=== PATIENT | female | born 1940 | race Two or more races ===

== ENCOUNTER 2024-04-04 07:11 | Emergency (ER) | payer MEDICARE, SELFPAY ==
[2024-04-04 07:17] VITALS: BP 190/89; PULSE 67; TEMP 36.8; O2SAT 99; BMI 23.8
--- NOTE | 2024-04-04 07:24 | XR_ITS ---
The [address] [address] Patient Name: NANDO EPSTEIN MRN: [id number] date: 1940 Sex: F Assigned Patient Location: ER Current Patient Location: ED.MAIN Accession/Order Number: [id number] Exam Date: 04/04/2024 07:30 Report Date: 04/04/2024 08:05 At the request of: DEJON FLORES Procedure: XR ankle LT min 3V PROCEDURE: XR ankle LT min 3V HISTORY: Swelling ; medial left ankle pain for 2 days COMPARISON: None. FINDINGS: BONES:No fracture, dislocation, or articular surface irregularity. Prominent calcaneal plantar spur and adjacent soft tissue heterotopic bone formation. SOFT TISSUES:Mild soft tissue swelling, medial greater than lateral. Calcium deposition within the Achilles tendon suggesting remote injury. EFFUSION:Joint effusion. OTHER: Negative. XR/XR ankle LT min 3V IMPRESSION: 1. No acute bone abnormality. 2. Joint effusion and soft tissue swelling of uncertain etiology. Electronically authenticated by: ESTHER ANDREWS Date: 04/04/2024 08:05
[2024-04-04 07:56] LABS: Uric Acid 4.9 mg/dL (2.6-6.0)
--- NOTE | 2024-04-04 08:18 | ED.LOWEXI1 ---
HPI HPI - Extremity Injury (Lower) General Chief Complaint: Extremity Injury, Lower Stated Complaint: LOWER EXTREMITY PAIN, LEFT Time Seen by Provider: 04/04/24 08:18 Source: patient and family Mode of arrival: Wheelchair Limitations: no limitations History of Present Illness HPI Narrative: This patient's uterine complaining of pain in the medial aspect of her ankle. 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 She does not recall any specific incident or injury or event. She did not roll her ankle. None of her other joints are involved. She has history of ulcerative colitis and is on medications for that. She has no history of gout. She has not been running a fever. Does not have any other recent viral type infectious process. Does not have any pain on the heel of the foot it is only over the medial malleolus. She has noted swelling in this area as well. After being triaged by her nursing staff she was sent to the radiology department for imaging. Related Data Home Medications ?Medication ?Instructions ?Recorded ?Confirmed balsalazide 750 mg capsule 750 mg PO DAILY 04/04/24 04/04/24 bisoprolol 10 1 tab PO DAILY 04/04/24 04/04/24 mg-hydrochlorothiazide 6.25 mg tablet latanoprost 0.005 % eye drops 1 drp ophthalmic (eye) BEDTIME 04/04/24 04/04/24 timolol maleate 0.5 % eye drops 1 drp ophthalmic (eye) DAILY 04/04/24 04/04/24 Allergies Allergy/AdvReac Type Severity Reaction Status Date / Time No Known Drug Allergies Allergy Verified 04/04/24 07:17 Opioid HPI Opioid Management Most Recent Pain and Opioid Data: Last Pain Scale 8 04/04/24 07:23 Exam Narrative Exam Narrative: Well-hydrated well-nourished very pleasant 83-year-old appears younger than stated age. Examining there left lower leg shows her to be erythema and soft tissue swelling noted over the medial malleolus. There is actually very little discomfort with palpation of the area. The great toe is not involved. Metatarsals are asymptomatic. The lateral joint is none swollen and nontender. There is [place] no discomfort on the heel at the plantar surface of the foot. There is no open wounds or suggestion of cellulitis. There is no evidence of DVT or vascular ischemia. Constitutional Vital Signs, click to edit/add: Last Vital Signs Temp 98.2 F 04/04/24 07:17 Pulse 67 04/04/24 07:17 Resp 18 04/04/24 07:17 BP 190/89 H 04/04/24 07:17 Pulse Ox 99 04/04/24 07:17 O2 Del Method Room Air 04/04/24 07:17 Course Vital Signs Vital signs: Vital Signs Temperature 98.2 F 04/04/24 07:17 Pulse Rate 67 04/04/24 07:17 Respiratory Rate 18 04/04/24 07:17 Blood Pressure 190/89 H 04/04/24 07:17 Pulse Oximetry 99 04/04/24 07:17 Oxygen Delivery Method Room Air 04/04/24 07:17 Temperature 98.2 F 04/04/24 07:17 Pulse Rate 67 04/04/24 07:17 Respiratory Rate 18 04/04/24 07:17 Blood Pressure 190/89 H 04/04/24 07:17 Pulse Oximetry 99 04/04/24 07:17 Oxygen Delivery Method Room Air 04/04/24 07:17 MDM - Extremity Injury (Lower) MDM Narrative Medical decision making narrative: Patient is very very active and has mild degenerative changes at her joint. The area was really not tender. I do not suspect that this is gout at this time. Supportive care including rest elevation and ice air splint was advised. 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 Fabricio Navarrete or your primary care doctor. Medrol pack Referrals: LUCÍA TIJERINA [Primary Care Provider] - 1 week
[2024-04-04 08:42] VITALS: BP 189/87; PULSE 78; O2SAT 99
== END 2024-04-04 08:42 | disposition home or self-care (01) ==
PROVIDERS: Emergency Provider Emergency Medicine Emergency Medical Services; PCP Family Medicine
DX: M19.072 Primary osteoarthritis, left ankle and foot (principal); K51.90 Ulcerative colitis, unspecified, without complications
CPT/HCPCS: 36415; 73610; 84550; 99284

== ENCOUNTER 2024-10-08 12:42 | Emergency (ER) | payer MEDICARE, SELFPAY ==
[2024-10-08 12:47] VITALS: BP 142/80; PULSE 61; TEMP 36.8; O2SAT 98; BMI 25.5
--- NOTE | 2024-10-08 12:57 | CT_ITS ---
The [address] [address] Patient Name: NANDO EPSTEIN MRN: [id number] date: 1940 Sex: F Assigned Patient Location: ER Current Patient Location: ER Accession/Order Number: [id number] Exam Date: 10/08/2024 13:13 Report Date: 10/08/2024 13:44 At the request of: OSITO SETH Procedure: CT head/brain wo con EXAMINATION: CT head/brain wo con HISTORY: Fell and hit head, left side hematoma COMPARISON: No relevant comparison available. TECHNIQUE: Axial CT images were obtained without IV contrast. Dose reduction techniques were achieved by using automated exposure control and/or adjustment of mA and/or kV according to patient size and/or use of iterative reconstruction technique. FINDINGS: BRAIN: No edema, hemorrhage, mass, acute infarction, or inappropriate atrophy. Small calcification within left basal ganglia. CSF SPACES: No hydrocephalus, subarachnoid hemorrhage, or mass. Appropriate for age. SKULL: No fracture, mass, or other significant visible lesion. SINUSES: No significant mucosal thickening or fluid on the limited views. ORBITS: No appreciable abnormality on the limited views. OTHER: Mild subcutaneous bruising/edema overlying left parietal bone. CT/CT head/brain wo con IMPRESSION: 1. No intracranial hemorrhage or appreciable acute abnormality. 2. Age consistent chronic changes. 3. Mild subcutaneous bruising/edema over left temporal bone. No fracture. Electronically authenticated by: ESTHER ANDREWS Date: 10/08/2024 13:44
--- NOTE | 2024-10-08 12:57 | ED.HEATRA1 ---
HPI HPI - Head Injury General Chief complaint: Head Injury Stated complaint: fall Time Seen by Provider: 10/08/24 12:53 History of Present Illness HPI Narrative: 83-year-old female presents for an injury to her head. She was on a walking track about an hour ago and she fell and she hit the left posterior part of her head. This caused an area of swelling. No LOC or vomiting and she is not nauseous. No neck pain or other injury at all. She is not on any blood thinners. Related Data Home Medications ?Medication ?Instructions ?Recorded ?Confirmed balsalazide 750 mg capsule 750 mg PO DAILY 04/04/24 04/04/24 bisoprolol 10 1 tab PO DAILY 04/04/24 04/04/24 mg-hydrochlorothiazide 6.25 mg tablet latanoprost 0.005 % eye drops 1 drp ophthalmic (eye) BEDTIME 04/04/24 04/04/24 timolol maleate 0.5 % eye drops 1 drp ophthalmic (eye) DAILY 04/04/24 04/04/24 Allergies Allergy/AdvReac Type Severity Reaction Status Date / Time No Known Drug Allergies Allergy Verified 04/04/24 07:17 Opioid HPI Opioid Management Most Recent Pain and Opioid Data: Last Pain Scale 8 04/04/24 07:23 04/04/24 Review of Systems ROS Narrative A ten point review of systems is negative except as noted above. PFSH PFSH Social History Little interest or pleasure in doing things: not at all Feeling down, depressed, or hopeless: not at all Exam Narrative Exam Narrative: Nurses note and vital signs reviewed and patient is not hypoxic. General: The patient appears well and in no apparent distress. Patient is resting comfortably sitting in a chair. Skin: Warm, dry, no pallor noted. There is no rash noted. Head: Normocephalic, hematoma present on the left posterior lateral aspect of her scalp. No laceration or dried blood. Cervical spine nontender. Eye: Normal conjunctiva, no drainage Ears, Nose, Mouth, and Throat: oral mucosa is moist. Nares patent. Cardiovascular: Regular Rate and Rhythm Respiratory: Patient is in no distress, no accessory muscle use, lungs are clear to auscultation, no wheezing, rales or rhonchi Back: non-tender including C-spine GI: Soft and nontender Musculoskeletal: All joints have full range of motion Neurological: A&O, normal speech Psychiatric: Cooperative Constitutional Vital Signs, click to edit/add: Last Vital Signs Temp 98.2 F 10/08/24 12:47 Pulse 61 10/08/24 12:47 Resp 18 10/08/24 12:47 BP 142/80 H 10/08/24 12:47 Pulse Ox 98 10/08/24 12:47 O2 Del Method Room Air 10/08/24 12:47 Course Vital Signs Vital signs: Vital Signs Temperature 98.2 F 10/08/24 12:47 Pulse Rate 61 10/08/24 12:47 Respiratory Rate 18 10/08/24 12:47 Blood Pressure 142/80 H 10/08/24 12:47 Pulse Oximetry 98 10/08/24 12:47 Oxygen Delivery Method Room Air 10/08/24 12:47 Temperature 98.2 F 10/08/24 12:47 Pulse Rate 61 10/08/24 12:47 Respiratory Rate 18 10/08/24 12:47 Blood Pressure 142/80 H 10/08/24 12:47 Pulse Oximetry 98 10/08/24 12:47 Oxygen Delivery Method Room Air 10/08/24 12:47 MDM - Head Injury MDM Narrative Medical decision making narrative: CT is negative. Findings are discussed with the patient and she is discharged home. Treatment diagnosis and follow-up were discussed with patient. Differential Diagnosis Differential diagnosis: Likely epidural hematoma, closed head injury, subarachnoid hematoma and subdural hematoma Imaging Data CT scan - head: Radiologist's impression: ITS Impressions Head CT 10/08/24 12:57 IMPRESSION: 1. No intracranial hemorrhage or appreciable acute abnormality. 2. Age consistent chronic changes. 3. Mild subcutaneous bruising/edema over left temporal bone. No fracture. Electronically authenticated by: ESTHER ANDREWS Date: 10/08/2024 13:44 Discharge Plan Discharge Chief Complaint: Head Injury Clinical Impression: Scalp hematoma Patient Disposition: Home, Self-Care Time of Disposition Decision: 14:10 Condition: Good Mode of Transportation: Private Vehicle Prescriptions / Home Meds: No Action bisoprolol-hydrochlorothiazide 10-6.25 mg tablet 1 tab PO DAILY latanoprost 0.005 % drops 1 drp OPHTHALMIC (EYE) BEDTIME timolol maleate 0.5 % drops 1 drp OPHTHALMIC (EYE) DAILY balsalazide 750 mg capsule 750 mg PO DAILY Print Language: Lithuanian Instructions: Scalp Contusion in Adults (ED) Referrals: LUCÍA TIJERINA [Primary Care Provider] - 1 week
--- OUTSIDE RECORDS SUMMARY | 2024-10-08 13:10 | XMS_ITS | CCD ---
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 Name Role Phone Alexandria Fisher Unavailable Camron Davis Unavailable Jeanette Brandt Unavailable Frederick Joe Unavailable KRISTIAN PEREZ Admitting Unavailable KRISTIAN PEREZ Attending Unavailable LILLIANA, DR CASTREJON Primary Care Unavailable JULIANA, DR ESTHER Rogers Consulting Unavailable OSITO SETH Consulting Unavailable HUGO, DR ANA Rogers Admitting Unavailable HUGO, DR ANA Rogers Attending Unavailable [facility], DR LOMBARDO Primary Care Unavailable HUGO, DR ANA Rogers Consulting Unavailable CHUYITA MARR Consulting Unavailable WANDA CASTILLO Admitting Unavailable WANDA CASTILLO Attending Unavailable SHAKIRA, DR LOMBARDO Primary Care Unavailable Jeanette Tijerina MD Unavailable [phone] Jeanette Tijerina MD Primary Care Provider JEANETTE TIJERINA Attending Unavailable JEANETTE TIJERINA Attending Unavailable Medications Current Medications Medication Drug Class(es) Dates Sig (Normalized) Sig (Original) acetaminophen 500 mg oral tablet (11 sources) Start: 05-26-2022 take 500 mg by mouth every six hours Acetaminophen Active 500 MG PO Q6H May 25, 2022 11:00pm Acetaminophen TN N Active Acetaminophen Ac tive balsalazide disodium 750 mg oral capsule (11 sources) Aminosalicylate Start: 05-26-2022 take 750 mg by mouth twice daily Balsalazide Active 750 MG PO Twice daily May 25, 2022 11:00pm Start: 04-28-2022 take 3 capsules by m outh every twenty-four hours Balsalazide Disodium 750 MG 3 capsules Orally ONCE A DAY for 90 days Apr, Active Start: 04-28-2022 take 3 capsules by m outh every twelve hours Balsalazide Disodium 750 MG 3 capsules Orally Twice a day for 30 days Apr, Active take 2 capsules by m outh every twelve hours balsalazide (Colazal) 750 MG capsule Take 2 capsules by mouth every 12 (twelve) hours. Active bisoprolol fumarate 10 mg / hydroCHLOROthiazide 6.25 mg oral tablet (14 sources) Thiazide Diuretic, beta-Adrenergic Fidencio Start: 07-07-2021 End: 09-23-2024 take 1 tablet by mouth once daily bisoprolol-hydroCHLOROthiazide (Ziac) 10-6.25 MG tablet Indications: Essential (primary) hypertension (CMS/HCC) TAKE 1 TABLET BY MOUTH EVERY DAY AT THE SAME TIME 90 tablet 1 09/23/2024 Active cyclobenzaprine hydrochloride 5 mg oral tablet (2 sources) Muscle Relaxant Start: 05-11-2022 take 1 tablet by mouth three times daily as needed Cyclobenzaprine HCl 5 MG 1 tab(s) Orally 3 times a day prn muscle spasms Take 1 tablet by mouth 3 times a day as needed for neck stiffness. Be aware this will make you very tired Apr, Active latanoprost 0.05 mg/ml ophthalmic solution (13 sources) Prostaglandin Analog Start: 07-07-2021 take 1 drop(s) into the eye(s) once daily at bedtime Latanoprost Active 0.005 DROPS EYE-BOTH Daily at bedtime July 06, 2021 11:00pm take 1 drop(s) into the eye(s) once daily latanoprost (Xalatan) 0.005 % ophthalmic solution Administer 1 drop into affected eye(s) 1 (one) time each day at the same time. Active take 1 drop(s) into the eye(s) once daily in the evening Latanoprost 0.005 % 1 drop into affected eye in the evening Ophthalmic Once a day Active mesalamine 800 mg delayed release oral tablet (1 source) Aminosalicylate Start: 09-24-2024 take 1 dose by mouth three times daily Mesalamine Active 1600 MG PO Three times daily 180 September 24, 2024 12:00am must be taken on empty stomach; no food 1 hr after or 2-3 hrs before dose Multiple Vitamins-Minerals (Multivitamin Adult, Minerals,) tablet (4 sources) take 1 tablet by mouth once daily Multiple Vitamins-Minerals (Multivitamin Adult, Minerals,) tablet Take 1 tablet by mouth 1 (one) time each day. Active Multivitamin preparation (3 sources) Start: 09-24-2024 multivitamin A ctive PO September 24, 2024 12:00am Multivitamin Act alexander Timolol Maleate (6 sources) beta-Adrenergic Fidencio Start: 09-24-2024 take 1 drop(s) into the eye(s) once daily Timolol Maleate Active 1 DROPS EYE-BOTH Daily September 24, 2024 12:00am take 1 drop(s) into the eye(s) once daily timolol (Timoptic) 0.5 % ophthalmic solution Administer 1 drop into affected eye(s) 1 (one) time each day at the same time. Active take 1 drop(s) into the eye(s) once daily Timolol Maleate 0.5 % 1 drop into affect ed eye Ophthalmic Once a day Active Completed/Discontinued Medications Medication Drug Class(es) Dates Sig (Normalized) Sig (Original) acetaminophen 325 mg / oxyCODONE hydrochloride 5 mg oral tablet (2 sources) Opioid Agonist Start: 07-08-2021 End: 05-26-2022 take 1 tablet by mouth every four to six hours Oxycodone-Acetamino phen (Percocet) 5-325 mg tablet Discontinued 1 - 2 TAB PO EVERY 4-6 HOURS 30 5 July 08, 2021 May 26, 2022 8:01am Start: 07-07-2021 End: 05-26-2022 take 5 tablets by mouth every six hours Oxycodone-Acetaminophen Discontinued 5 TAB PO Every 6 hours July 06, 2021 11:00pm May 26, 2022 8:01am methylPREDNISolone 4 mg oral tablet (3 sources) Corticosteroid Start: 04-04-2024 End: 09-05-2024 methylPREDNISolone (Medrol Dospak) 4 MG tablets Take 4 mg by mouth 1 (one) time TAKE 6 TABLETS ON DAY 1 DIRECTED ON PACKAGE AND DECREASE BY 1 TAB EACH DAY FOR A TOTAL OF 6 DAYS 04/04/2024 09/05/2024 Discontinued (Therapy completed) Problems Active Problems Problem Classification Problem Date Documented Da te Episodic/Chronic Abdominal pain (4 sources) Abdominal pain; Translations: [Unspecified abdominal pain] Onset: 2 Resolved: 2 Episodic Essential hypertension (7 sources) Essential hypertension; Translations: [Essential (primary) hypertension] Onset: 3 08-15-2023 Chronic Fracture of upper limb (5 sources) Other intraarticular fracture of lower end of left radius, subsequent encounter for closed fracture with routine healing; Translations: [Displaced fracture of left radial styloid process, initial encounter for closed fracture] Onset: 1 Resolved: 1 Episodic Gastrointestinal hemorrhage (5 sources) Melena; Translations: [Rectal hemorrhage] Onset: 2 Resolved: 2 Episodic Gout and other crystal arthropathies (4 sources) Chondrocalcinosis due to pyrophosphate crystals; Translations: [Other chondrocalcinosis, unspecified site] Onset: 3 08-15-2023 Chronic Hemorrhoids (4 sources) Hemorrhoids; Translations: [Unspecified hemorrhoids] Onset: 2 Resolved: 2 Episodic Immunizations and screening for infectious disease (2 sources) Patient encounter status; Translations: [Encounter for immunization] 09-05-2024 Episodic Other and unspecified benign neoplasm (3 sources) Benign neoplasm of colon; Translations: [Benign neoplasm of colon, unspecified] Episodic Other and unspecified benign neoplasm (2 sources) Benign neoplasm of colon, unspecified Onset: 2 Resolved: 2 Episodic Other gastrointestinal disorders (3 sources) Diarrhea; Translations: [Diarrhea, unspecified] Episodic Other gastrointestinal disorders (2 sources) Diarrhea, unspecified Onset: 2 Resolved: 2 Episodic Regional enteritis and ulcerative colitis (14 sources) Ulcerative colitis; Translations: [Ulcerative colitis, unspecified, without complications] Onset: 2 Resolved: 2 Chronic Spondylosis; intervertebral disc disorders; other back problems (4 sources) Cervicalgia; Translations: [Torticollis] Onset: 2 Episodic Past or Other Problems Problem Classification Problem Date Documented Date Episodic/Chronic E Codes: Fall (1 source) Fall on same level from slipping, tripping and stumbling with subsequent striking against other object, initial encounter; Translations: [FALL SAME LVL SLIP STRK OTH OBJ INT] Onset: 07-02-2021 Episodic Other injuries and conditions due to external causes (3 sources) Unspecified injury of left wrist, hand and finger(s), initial encounter; Translations: [UNS INJ LT WRIST HAND FINGERS INIT] Onset: 06-30-2021 Episodic Residual codes; unclassified (2 sources) Other specified postprocedural states Onset: 09-07-2021 Resolved: 11-02-2021 Episodic Sprains and strains (1 source) Strain of muscle, fascia and tendon at neck level, initial encounter Onset: 05-11-2022 Resolved: 05-11-2022 Episodic Results Test Name Value Interpretation Reference Range Facility [facility] 05-26-2022 L Specimen: [id number] Received: 05/26/22 Status: JORGE Gudinopati Num: [id number] Spec Type: Surgical Subm Dr: Frederick Joe MD Tissues: A Colon Biopsy (SURVEILLANCE BX) B Colon - Polyp (RECTUM POLYP) Procedures: HE Stain/4, Gross/Micro L4/2 Patient Age/Sex Location Account Attending Physician Jovita Stiles 81/F [id number] Frederick Joe MD SPEC NUM: [id number] RECD: 05/26/22 STATUS: [facility] NUM: [id number] DANA: 05/26/22 DR: Frederick Joe MD ENTERED: 05/26/[address] [facility] [address]: SPEC TYPE: Surgical DEPT: S ORDERED: HE Stain/4, Gross/Micro L4/2 ORDERED: HE Stain/4, Gross/Micro L4/2 Pathological Diagnosis A. Colon, surveillance biopsies: - Colonic mucosa with no significant pathologic findings. - No cryptitis, no dysplasia identified. B. Rectal polyp, polypectomy: - Traditional serrated adenoma. Clinical Information Ulcerative colitis Gross Description A. Received in formalin labeled with the patient's name, number and surveillance colon biopsies are two fragments of soft tissue measuring 0.4 and 1.0 cm. Entirely submitted in one cassette labeled A1. (LG/) B. Received in formalin labeled with the patient's name, number and polyp rectum are multiple fragments of soft tissue and fecal material measuring 2.5 x 1.0 x 0.2 cm in aggregate. Entirely submitted in one cassette labeled B1. (LG/) Specimen: [id number] Received: 05/26/22 Status: JORGE Gudino Num: [id number] Spec Type: Surgical Subm Dr: Frederick Joe MD Tissues: A Colon Biopsy (SURVEILLANCE BX) B Colon - Polyp (RECTUM POLYP) Procedures: HE Stain/4, Gross/Micro L4/2 Patient: Jovita Stiles [id number] (Continued) Specimen: [id number] Received: 05/26/22 (Continued) Signed (signatur e on file) Bertin Ramirez MD 05/27/22 1524 Specimen: [id number] Received: 05/26/22 Status: JORGE Matute Num: [id number] Spec Type: Surgical Subm Dr: Frederick Joe MD Tissues: A Colon Biopsy (SURVEILLANCE BX) B Colon - Polyp (RECTUM POLYP) Procedures: HE Stain/4, Gross/Micro L4/2 Patient: Jovita Stiles [id number] (Continued) Specimen: [id number] Received: 05/26/22 (Continued) Microscopic Description A. Two glass slides with H E stained material have been examined. The microscopic findings support the above pathologic diagnosis. B. Two glass slides with H E stained material have been examined. The microscopic findings support the above pathologic diagnosis. CPT Codes 13399?2 Specimen: [id number] Received: 05/26/22 Status: JORGE Matute Num: [id number] Spec Type: Surgical Subm Dr: Frederick Joe MD Tissues: A Colon Biopsy (SURVEILLANCE BX) B Colon - Polyp (RECTUM POLYP) Procedures: HE Stain/4, Gross/Micro L4/2 Patient: Jovita Stiles [id number] (Continued) Signed (signatur e on file) Bertin Ramirez MD 05/27/22 1524 [facility] COVID-19 Antigenon 2 COVID-19 Antigen Healthcare Worker?: N Reference Range: Negative Negative results, from patients with symptom onset beyond five days, should be treated as presumptive and confirmation with a molecular assay, if necessary, for patient management, may be performed. Negative results do not rule out COVID-19 and should not be used as the sole basis for treatment or patient management decisions, including infection control decisions. Negative results should be considered in the context of a patient's recent exposures, history and the presence of clinical signs and symptoms consistent with COVID-19. The Anahi SARS Antigen MIKE does not differentiate between SARS-CoV and SARS-CoV-2. This test was developed and its performance characteristic determined by [employer] and validated at [facility]. This test has not been FDA cleared or approved. This test has been authorized by FDA under an Emergency Use Authorization (EUA). This test has been validated in accordance with the FDA's Guidance Document (Policy for Diagnostics Testing in Laboratories Certified to Perform High Complexity Testing under CLIA prior to Emergency Use Authorization for Coronavirus Disease-2019 during the Public Health Emergency) issued on February 20, 2020. This test is only authorized for the duration of time the declaration that circumstances exist justifying the authorization of the emergency use of in vitro diagnostic tests for detection of SARS-CoV-2 virus and/or diagnosis of COVID-19 infection under section 564(b)(1) of the Act, 21 U.S.C. 360bbb-3(b)(1), unless the authorization is terminated or revoked sooner. SARS-CoV+SARS-CoV-2 (COVID-19) Ag [Presence] in Respiratory specimen by Rapid immunoassay Negative for SARS Antigen by MIKE PERFORMED BY: [place] [phone] PATHOLOGIST EMERGENCY MEDICAL TECH KRISTIE BUENO M.D. Normal [facility] Comment on above: Performed By: #### C OVID-19 ANAHI, SOFIANEG #### [address] Anahi Ag Negativeon 05-24-20 Anahi Ag Negative Negative Normal Negative [facility] Comment on above: Result Comment: This is a duplicate Anahi SARS Antigen (MIKE) result to be used for statistical tracking purpose only. PERFORMED BY: [place] [phone] PATHOLOGIST EMERGENCY MEDICAL TECH KRISTIE BUENO M.D. Performed By: #### C MP, CBC #### [address] XR CSPINE 2_3 VIEWSon 2021 XR CSPINE 2_3 VIEWS EXAMINATION: XR CSPINE 2_3 VIEWS HISTORY: Pain ; right side neck pain and stiffness COMPARISON: No relevant comparison available. FINDINGS: BONES: Slight loss of height of C4, C5, C6 compared to adjacent levels; no significantly increased trabecular density. Mild degenerative facet arthropathy C4-C5 through C6-C7. No facet joint disruption. No significant listhesis. DISC SPACES: Mild narrowing C4-C5, C5-C6. PARASPINOUS: Prominent atherosclerotic disease of the left carotid artery. OTHER: Negative. IMPRESSION: 1. No appreciable acute abnormality. 2. Suspect remote mild compression fractures of C4, C5, C6. 3. Multilevel mild degenerative disc disease and mild degenerative facet arthropathy. 4. Moderate marked atherosclerotic disease of left carotid artery. Electronically authenticated by: ESTHER ANDREWS Date: 2022-05-13 08:07 Normal [facility] Complete Blood Count with Au to Diffon 04-20-2022 Basophils (Bld) [#/Vol] 0.02 10*3/uL Normal 0.00-0.20 [facility] Specialist Comment on above: Performed By: #### C BCAD #### [facility] [address] [place], [place] [id number] Basophils/100 WBC (Bld) 0.2 % Normal [facility] Certified Peer Specialist Comment on above: Performed By: #### C BCAD #### [facility] [address] [place], [place] [id number] Eosinophils (Bld) [#/Vol] 0.07 10*3/uL Normal 0.02-0.50 [facility] Certified Peer Specialist Comment on above: Performed By: #### C BCAD #### [facility] [address] [place], [place] [id number] Eosinophils/100 WBC (Bld) 0.8 % Normal [facility] Specialist Comment on above: Performed By: #### C BCAD #### [facility] [address] [place], [place] [id number] Erythrocyte distribution width (RBC) [Ratio] 12.9 % Normal 11.0-15.0 [facility] Specialist Comment on above: Performed By: #### C BCAD #### [facility] [address] [place], [place] [id number] Hematocrit (Bld) [Volume fraction] 39.7 % Normal 35.0-47.0 [facility] Specialist Comment on above: Performed By: #### C BCAD #### [facility] [address] [place], [place] [id number] Hemoglobin (Bld) [Mass/Vol] 13.2 g/dL Normal 11.6-15.5 [facility] Specialist Comment on above: Performed By: #### C BCAD #### [facility] [address] [place], [place] [id number] Lymphocytes (Bld) [#/Vol] 2.6 10*3/uL Normal 0.9-3.9 [facility] Specialist Comment on above: Performed By: #### C BCAD #### [facility] [address] [place], [place] [id number] Lymphocytes/100 WBC (Bld) 30.4 % Normal [facility] Comment on above: Performed By: #### C BCAD #### [facility] [address] [place], [place] [id number] MCH (RBC) [Entitic mass] 30.0 pg Normal 27.0-33.0 [facility] Comment on above: Performed By: #### C BCAD #### [facility] [address] [place], [place] [id number] MCHC (RBC) [Mass/Vol] 33.2 g/dL Normal 32.0-36.0 [facility] Comment on above: Performed By: #### C BCAD #### [facility] [address] [place], [place] [id number] MCV (RBC) [Entitic vol] 90 fL Normal 80-100 [facility] Specialist Comment on above: Performed By: #### C BCAD #### [facility] [address] [place], [place] [id number] Monocytes (Bld) [#/Vol] 0.7 10*3/uL Normal 0.2-0.9 [facility] Comment on above: Performed By: #### C BCAD #### [facility] [address] [place], [place] [id number] Monocytes/100 WBC (Bld) 8.3 % Normal [facility] Comment on above: Performed By: #### C BCAD #### [facility] [address] [place], [place] [id number] Neutrophils (Bld) [#/Vol] 5.1 10*3/uL Normal 1.5-7.8 [facility] Specialist Comment on above: Performed By: #### C BCAD #### [facility] [address] [place], [place] [id number] Neutrophils/100 WBC (Bld) 60.1 % Normal [facility] Specialist Comment on above: Performed By: #### C BCAD #### [facility] [address] [place], [place] [id number] Platelet mean volume (Bld) [Entitic vol] 10.90 fL Normal 7.50-12.50 [facility] Specialist Comment on above: Performed By: #### C BCAD #### [facility] [address] [place], [place] [id number] Platelets (Bld) [#/Vol] 272 10*3/uL Normal 140-400 [facility] Comment on above: Performed By: #### C BCAD #### [facility] [address] [place], [place] [id number] RBC (Bld) [#/Vol] 4.40 10*6/uL Normal 3.90-5.20 [facility] Comment on above: Performed By: #### C BCAD #### [facility] [address] [place], [place] [id number] RDW-SD 42.6 fL Normal 37.0-50.0 [facility] Comment on above: Performed By: #### C BCAD #### [facility] [address] [place], [place] [id number] WBC (Bld) [#/Vol] 8.6 10*3/uL Normal 3.8-11.0 [facility] Comment on above: Performed By: #### C BCAD #### [facility] [address] [place], [place] [id number] Q - PT AND PTTon 04-20-2022 INR Coag (PPP) [Relative time] 1.0 {INR} Normal [facility] Comment on above: Order Comment: [facility] Testing performed at: QPT, [facility] [address], [address] [place] [address], [address] [place] [address], [phone], Torpedo Specialist: Tavares Paulson MD [facility] Collection Date/Time: [facility] Results Received Date/Time: [facility] Reported Date/Time: Result Comment: Refe rence Range 0.9-1.1 Moderate-intensity Warfarin Therapy 2.0-3.0 Higher-intensity Warfarin Therapy 3.0-4.0 Performed By: #### 7 94F #### [facility] [address] [place] [address] PARTIAL THROMBOPLASTIN TIME, ACTIVATED 28 sec Normal 23-32 [facility] Comment on above: Order Comment: [facility] performed at: [facility] [place], [facility] [address], [address] , [address] [place] [address], [phone], Torpedo Specialist: Tavares Paulson MD [facility] Date/Time: [facility] Results Received Date/Time: [facility] Reported Date/Time: Result Comment: This test has not been validated for monitoring unfractionated heparin therapy. For testing that is validated for this type of therapy, please refer to the Heparin Anti-Xa assay (test code 79602). For additional information, please refer to http://education.[employer]/faq/BCN717 (This link is being provided for informational/educational purposes only.) Performed By: #### 7 94F #### [facility] [address] [place] [address] PT Coag (PPP) [Time] 9.8 s Normal 9.0-11.5 [facility] Comment on above: Order Comment: [facility] performed at: [employer] [facility] [address], [address] , [address] [place] [address], [phone], Torpedo Specialist: Tavares Paulson MD [facility] Date/Time: [facility] Results Received Date/Time: [facility] Reported Date/Time: Performed By: #### 7 94F #### [facility] [address] [place] [address] Q - FECAL GLOBIN BY IMMUNOCH EMISTRYon 04-04-2022 FECAL GLOBIN BY IMMUNOCHEMISTRY SEE NOTE Normal [facility] Comment on above: Order Comment: [facility] performed at: [place], [facility] [address], [address] , [address] [place] [address], [phone], Torpedo Specialist: Tavares Paulson MD [facility] Date/Time: [facility] Results Received Date/Time: [facility] Reported Date/Time: Result Comment: FECA L GLOBIN BY IMMUNOCHEMISTRY Micro Number: [id number] Test Status: Final Specimen Source: Insure (tm) fobt test card Specimen Quality: Adequate Fecal Globin: Not Detected Performed By: #### 1 [id number] #### [facility] [address] [place] [address] Comprehensive Metabolic Pane thomas 02-24-2022 Albumin [Mass/Vol] 4.5 g/dL Normal 3.6-5.1 [facility] Comment on above: Performed By: #### C CONSTANZA LIPD #### [facility] [address] [place], [place] [id number] Albumin/Globulin [Mass ratio] 1.8 {ratio} Normal 1.0-2.5 [facility] Comment on above: Performed By: #### C GABRIELLA APODACA #### [facility] [address] [place], [place] [id number] ALP [Catalytic activity/Vol] 96 U/L Normal 35-119 [facility] Comment on above: Performed By: #### C CONSTANZA LIPToña #### [facility] [address] [place], [place] [id number] ALT [Catalytic activity/Vol] 10 U/L Normal 6-33 [facility] Comment on above: Result Comment: 10/20 Female reference range changed. Performed By: #### C GABRIELLA APODACA #### [facility] [address] [place], [place] [id number] Anion gap [Moles/Vol] 15 mmol/L Normal 12-20 [facility] Comment on above: Result Comment: Effe ctive 11/25/2019 reference range changed. Performed By: #### Valentin APODACA LIPToña #### [facility] [address] [place], [place] [id number] AST [Catalytic activity/Vol] 17 U/L Normal 9-34 [facility] Comment on above: Performed By: #### C CONSTANZA LIPToña #### [facility] [address] [place], [place] [id number] BUN/CREA 30 Ratio High 6-22 [facility] Comment on above: Performed By: #### C CONSTANZA LIPToña #### [facility] [address] [place], [place] [id number] Calcium [Mass/Vol] 9.6 mg/dL Normal 8.6-10.2 [facility] Comment on above: Performed By: #### C MP, LIPD #### [facility] [address] [place], [place] [id number] Chloride [Moles/Vol] 101 mmol/L Normal 98-107 [facility] Comment on above: Performed By: #### C MP, LIPD #### [facility] [address] [facility] [place] [id number] CO2 [Moles/Vol] 28 mmol/L Normal 20-31 [facility] Comment on above: Performed By: #### C MP, LIPD #### [facility] [address] [facility] [place] [id number] Creatinine [Mass/Vol] 0.6 mg/dL Normal 0.6-1.4 [facility] Comment on above: Performed By: #### C MP, LIPD #### [facility] [address] [place], [place] [id number] eGFRAA 126 mL/min/1.73m2 Normal >60 [facility] Specialist Comment on above: Performed By: #### C MP, LIPD #### [facility] [address] [place], [place] [id number] eGFRNAA 104 mL/min/1.73m2 Normal >60 [facility] Comment on above: Performed By: #### C MP, LIPD #### [facility] [address] [place], [place] [id number] Globulin (S) [Mass/Vol] 2.5 g/dL Normal 1.9-3.7 [facility] Specialist Comment on above: Performed By: #### C MP, LIPD #### [facility] [address] [place], [place] [id number] Glucose [Mass/Vol] 99 mg/dL Normal 65-99 [facility] Certified Peer Specialist Comment on above: Result Comment: For FASTING Glucose --- ADA reference ranges: Normal 65-99 mg/dl Prediabetes 100-125 Diabetes >/= 126 Performed By: #### C MP, LIPD #### [facility] [address] [place], [place] [id number] Potassium [Moles/Vol] 3.3 mmol/L Low 3.5-5.5 [facility] Comment on above: Performed By: #### C MP, LIPD #### [facility] [address] [place], [place] [id number] Protein [Mass/Vol] 7.0 g/dL Normal 6.1-8.1 [facility] Certified Peer Specialist Comment on above: Performed By: #### C MP, LIPD #### [facility] [address] [place], [place] [id number] Sodium [Moles/Vol] 140 mmol/L Normal 135-146 [facility] Certified Peer Specialist Comment on above: Performed By: #### C MP, LIPD #### [facility] [address] [place], [place] [id number] TBIL <0.3 Normal [facility] Specialist Comment on above: Performed By: #### C MP, LIPD #### [facility] [address] [place], [place] [id number] Urea nitrogen [Mass/Vol] 17 mg/dL Normal 7-25 [facility] Specialist Comment on above: Performed By: #### C MP, LIPD #### [facility] [address], [place] [id number] Lipid Panelon 02-24-2022 Cholesterol [Mass/Vol] 166 mg/dL Normal 125-200 No [facility] Comment on above: Result Comment: Low risk < 200mg/dL Borderline risk 201-239 mg/dl High risk > or equal to 240 Performed By: #### C MP, LIPD #### [facility] [address], [place] [id number] Cholesterol in HDL [Mass/Vol] 49 mg/dL Normal >40 [facility] Specialist Comment on above: Result Comment: High Cardiovascular Risk HDL <40 mg/dL Low Cardiovascular Risk HDL > or equal to 60 mg/dl Performed By: #### C MP, LIPD #### [facility] [address] [place], [place] [id number] Cholesterol in LDL [Mass/Vol] 71 mg/dL Normal [facility] Certified Peer Specialist Comment on above: Result Comment: LDL ATP III CLASSIFICATION LDL less than 100 mg/dl Optimal LDL 100-129 mg/dl Near or above optimal LDL 130-159 Borderline high LDL 160-189 High LDL greater than 189 mg/dl Very High Performed By: #### C MP, LIPD #### [facility] [address], [place] [id number] Cholesterol in VLDL [Mass/Vol] 46 mg/dL Normal [facility] Specialist Comment on above: Performed By: #### C MP, LIPD #### [facility] [address], [place] [id number] Cholesterol.total/Chol esterol in HDL [Mass ratio] 3 {ratio} Normal [facility] Specialist Comment on above: Performed By: #### C MP, LIPD #### [facility] [address], [place] [id number] Triglyceride [Mass/Vol] 230 mg/dL High 30-150 [facility] Certified Peer Specialist Comment on above: Result Comment: TRIG ATPIII CLASSIFICATIONS TRIG less than 150 mg/dl Normal TRIG 150-199 mg/dl Borderline High TRIG 200-500 mg/dl High TRIG greather than 500 mg/dl Very High Performed By: #### C MP, LIPD #### [facility] [address] [place], [place] [id number] XR wrist LT 2Von 11-02-2021 XR wrist LT 2V [facility] [place] [address] XRay Report Signed Patient: Jovita Stiles MR#: [id number] [birth year] : 1940 Acct:[id number] Age/Sex: 80 / F ADM Date: 11/02/21 Loc: [facility] Room: Type: [facility] Attending Dr: Camron Davis MD Ordering Provider: Camron Davis MD Date of Service: 11/02/21 XR/XR wrist LT 2V: PAIN Copies to: Camron Davis MD LEFT WRIST - 2 views COMPARISON: 09/07/2021 CLINICAL DATA: Follow-up wrist fractures. AP and lateral views were obtained. There is redemonstration of a volar plate and screws along the distal radius. The underlying fracture is stable in position. An ulnar styloid fracture is again visualized though there is increasing callus formation fusing the bony fragments. No new fractures or dislocation are identified. There is mild dorsal soft tissue swelling. XR/XR wrist LT 2V IMPRESSION: STABLE HEALING FRACTURES AT THE DISTAL RADIUS AND ULNA. Impression dictated by: Susan Felder M.D.11/02/2021 1:20 PM Dictation Location: [facility]02 Transcribed By: [facility] 11/02/21 1320 Dictated By: Susan Felder MD 11/02/21 1318 Signed By: 11/02/21 1320 [facility] XR wrist LT 2Von 09-07-2021 XR [place] LT 2[place] [address] XRay Report Signed Patient: Jovita Stiles MR#: [id number] [birth year] : 1940 Acct:[id number] Age/Sex: 80 / F ADM Date: 09/07/21 Loc: [facility] Room: Type: [facility] Attending Dr: Camron Davis MD Ordering Provider: Camron Davis MD Date of Service: 09/07/21 XR/XR wrist LT 2V: Other intraarticular fracture of lower end of left radius, s Copies to: Camron Davis MD 2 viewsLEFT wrist plain film COMPARISON:08/04/21 HISTORY:Status post LEFT distal radius ORIF. No hardware failure. Adequate bony alignment distal radius fracture. Redemonstration of ulnar styloid fracture. XR/XR wrist LT 2V IMPRESSION:Stable findings Impression dictated by: Kain Joseph M.D.09/07/2021 12:05 PM Dictation Location: [facility]11 Transcribed By: [facility] 09/07/21 1205 Dictated By: Kain Joseph DO 09/07/21 1204 Signed By: 09/07/21 1205 [facility] XR wrist LT 2V [facility] [employer] Other XR wrist LT 2V [facility] [employer] Other XR wrist LT 2V [address] [place] [address] [employer] Other XR wrist LT 2[place] [address] No rt [employer] Other XR wrist LT 2V XRay Report [employer] Other XR wrist LT 2V Signed [employer] Other XR wrist LT 2V Patient: Jovita Stiles MR#: [id number] [employer] Other XR wrist LT 2V 22 [employer] Other XR wrist LT 2V : 1940 Acct:[id number] [employer] Other XR wrist LT 2V Age/Sex: 80 / F ADM Date: 09/07/21 [employer] Other XR wrist LT 2V Loc: [facility] Room: Type: [facility] [employer] Other XR wrist LT 2V Attending Dr: Camron Davis MD [employer] Other XR wrist LT 2V Ordering Provider: Camron Davis MD [employer] Other XR wrist LT 2V Date of Service: 09/07/21 [employer] Other XR wrist LT 2V XR/XR wrist LT 2V: Other intraarticular fracture of lower end of left [employer] Other XR wrist LT 2V radius, s [employer] Other XR wrist LT 2V Copies to: Camron Davis MD [employer] Other XR wrist LT 2V 2 viewsLEFT wrist plain film [employer] Other XR wrist LT 2V COMPARISON:08/04/21 [employer] Other XR wrist LT 2V HISTORY:Status post LEFT distal radius ORIF. [employer] Other XR wrist LT 2V No hardware failure. Adequate bony alignment distal radius fracture. Redemonstration of ulnar [employer] Other XR wrist LT 2V styloid fracture. Nor [employer] Other XR wrist LT 2V XR/XR wrist LT 2V [employer] Other XR wrist LT 2V IMPRESSION:Stable findings [employer] Other XR wrist LT 2V Impression dictated by: Kain Joseph M.D.09/07/2021 12:05 PM [employer] Other XR wrist LT 2V Dictation Location: [facility] [place] [employer] Other XR wrist LT 2V Transcribed By: [facility] 09/07/21 1205 [employer] Other XR wrist LT 2V Dictated By: Kain Joseph DO 09/07/21 1204 [employer] Other XR wrist LT 2V Signed By: [employer] Other XR wrist LT 2V 09/07/21 1205 [employer] Other XR wrist LT 2Von 08-04-2021 XR wrist LT 2V [facility] [address] [place] [address] [place] [address] XRay Report Signed Patient: Jovita Stiles MR#: [id number] [birth year] : 1940 Acct:[id number] Age/Sex: 80 / F ADM Date: 08/04/21 Loc: [facility] Room: Type: [facility] Attending Dr: Camron Davis MD Ordering Provider: Camron Davis MD Date of Service: 08/04/21 XR/XR wrist LT 2V: Other intraarticular fracture of lower end of left radius, s Copies to: Camron Davis MD XR wrist LT 2V 08/04/2021 1:44 PM SIGNS AND SYMPTOMS: Follow-up distal left radius fracture status post fixation PROTOCOL: Frontal and lateral radiograph of the left wrist COMPARISON: 07/15/2021 FINDINGS: There is volar plate and screw fixation of a distal radius fracture without change in alignment. Healing remains incomplete. No hardware complication. There is also an incompletely healed ulnar styloid fracture. There is diffuse soft tissue swelling. XR/XR wrist LT 2V IMPRESSION: Status post volar plate and screw fixation of a distal radius fracture without significant interval change. There is an unchanged ulnar styloid fracture. Impression dictated by: Ana Nicole M.D.08/04/2021 3:13 PM Dictation Location: [place] [address] Transcribed By: [facility] 08/04/211512 Dictated By: Ana Nicole II, MD 08/04/211511 Signed By: 08/04/21 151 Normal [facility] XR wrist LT 2Von 07-15-2021 XR wrist LT 2V [facility] [place] [address] XRay Report Signed Patient: Jovita Stiles MR#: [id number] [birth year] : 1940 Acct:[id number] Age/Sex: 80 / F ADM Date: 07/15/21 Loc: [facility] Room: Type: [facility] Attending Dr: Jeanette MOSCOSO Ordering Provider: CRISTIAN Morales Date of Service: 07/15/21 XR/XR wrist LT 2V: Other intraarticular fracture of lower end of left radius, s Copies to: CRISTIAN Morales XR wrist LT 2V 07/15/2021 2:30 PM SIGNS AND SYMPTOMS: Follow-up open reduction internal fixation of a distal radius fracture on the left PROTOCOL: Frontal and lateral radiographs of the left wrist COMPARISON: Intraoperative views 07/08/2021 FINDINGS: There is volar plate and screw fixation across the dorsal plate and screw fixation of a distal radius fracture. There is no hardware complication. The bones are in near-anatomic alignment. There is a minimally displaced ulnar styloid fracture is unchanged. The radiocarpal joint space and carpal rows are preserved. There is diffuse soft tissue swelling. XR/XR wrist LT 2V IMPRESSION: Status post volar plate and screw fixation of a distal radius fracture with bones in near anatomic alignment. No hardware complication. Impression dictated by: Ana Nicole M.D.07/15/2021 4:17 PM Dictation Location: [facility] Transcribed By: RUTH ANN 07/15/21 1617 Dictated By: Ana Nicole II, MD 07/15/21 1615 Signed By: 07/15/21 1617 [facility] XR wrist LT 2Von 07-08-2021 XR wrist LT 2V [facility] [place] [address] XRay Report Signed Patient: Jovita Stiles MR#: [id number] 22 : 1940 Acct:[id number] Age/Sex: 80 / F ADM Date: 07/08/21 Loc: [place] Room: Type: [facility] Attending Dr: Camron Davis MD Ordering Provider: Camron Davis MD Date of Service: 07/08/21 XR/XR wrist LT 2V: . Copies to: Camron Davis MD XR wrist LT 2V 07/08/2021 1:38 PM SIGNS AND SYMPTOMS: Open reduction and internal fixation of distal radius fracture PROTOCOL: Intraoperative views of the left wrist COMPARISON: 10/09/2021 FINDINGS: Intraoperative views of the left wrist demonstrates volar plate and screw fixation across a distal radius fracture. Number of images: 13 Fluoroscopic time: 2 minutes 24 seconds. XR/XR wrist LT 2V IMPRESSION: Intraoperative views of the left wrist demonstrates volar plate and screw fixation across a distal radius fracture. 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 This test has not been FDA cleared or approved. This test has been authorized by FDA under an Emergency Use Authorization (EUA). This test has been validated in accordance with the FDA's Guidance Document (Policy for Diagnostics Testing in Laboratories Certified to Perform High Complexity Testing under CLIA prior to Emergency Use Authorization for Coronavirus Disease-2019 during the Public Health Emergency) issued on February 20, 2020. This test is only authorized for the duration of time the declaration that circumstances exist justifying the authorization of the emergency use of in vitro diagnostic tests for detection of SARS-CoV-2 virus and/or diagnosis of COVID-19 infection under section 564(b)(1) of the Act, 21 U.S.C. 360bbb-3(b)(1), unless the authorization is terminated or revoked sooner. PERFORMED BY: [place] [address] PATHOLOGIST EMERGENCY MEDICAL TECH KRISTIE BUENO M.D. Performed By: #### C OVID 19 [facility] #### [address] Complete Blood Count Auto Di ffon 07-07-2021 Basophils (Bld) [#/Vol] 0.0 10*3/uL Normal 0.0-0.2 [facility] Comment on above: Result Comment: PERF ORMED BY: [place] [address] PATHOLOGIST EMERGENCY MEDICAL TECH KRISTIE BUENO M.D. Performed By: #### C MP, CBC #### [address] Basophils/100 WBC (Bld) 0.2 % Normal . [facility] Comment on above: Performed By: #### C MP, CBC #### [address] Eosinophils (Bld) [#/Vol] 0.0 10*3/uL Normal 0.0-0.45 [facility] Comment on above: Performed By: #### C MP, CBC #### [address] [address] [place] Eosinophils/100 WBC (Bld) 0.4 % Normal . [facility] Comment on above: Performed By: #### C MP, CBC #### [address] Erythrocyte distribution width (RBC) [Ratio] 13.1 % Normal 11.9-15.3 [facility] Comment on above: Performed By: #### C MP, CBC #### [address] Hematocrit (Bld) [Volume fraction] 37.7 % Normal 34.0-46.4 [facility] Comment on above: Performed By: #### C MP, CBC #### [address] Hemoglobin (Bld) [Mass/Vol] 13.0 g/dL Normal 11.8-15.4 [facility] Comment on above: Performed By: #### C MP, CBC #### [address] Lymphocytes (Bld) [#/Vol] 2.1 10*3/uL Normal 1.00-4.8 [facility] Comment on above: Performed By: #### C MP, CBC #### [address] Lymphocytes/100 WBC (Bld) 25.0 % Normal . [facility] Comment on above: Performed By: #### C MP, CBC #### [address] MCH (RBC) [Entitic mass] 31.2 pg Normal 24.7-34.3 [facility] Comment on above: Performed By: #### C MP, CBC #### [address] MCV (RBC) [Entitic vol] 90.5 fL Normal 80-100 [facility] Comment on above: Performed By: #### C MP, CBC #### [address] Mean Corpuscular HGB Conc 34.5 g/dL Normal 32.0-35.0 [facility] Comment on above: Performed By: #### C MP, CBC #### [facility] [address] [place] [address] [place] Monocytes (Bld) [#/Vol] 0.7 10*3/uL Normal 0.0-0.8 [facility] Comment on above: Performed By: #### C MP, CBC #### [facility] [address] [place] [address] [place] Monocytes/100 WBC (Bld) 7.9 % Normal . [facility] Comment on above: Performed By: #### C MP, CBC #### [facility] [address] Neutrophils (Bld) [#/Vol] 5.6 10*3/uL Normal 1.8-7.7 [facility] Comment on above: Performed By: #### C MP, CBC #### [address] Neutrophils/100 WBC (Bld) 66.5 % Normal . [facility] Comment on above: Performed By: #### C MP, CBC #### [place] [address] [place] Nucleated RBC/100 WBC (Bld) [Ratio] 0.2 % Normal 0-0.5 [facility] Comment on above: Performed By: #### C MP, CBC #### [facility] [address] [place] [address] [place] Platelet mean volume (Bld) [Entitic vol] 8.8 fL Normal 6.3-10.7 [facility] Comment on above: Performed By: #### C MP, CBC #### [facility] [address] [place] [address] [place] Platelets (Bld) [#/Vol] 242 10*3/uL Normal 150-450 [facility] Comment on above: Performed By: #### C MP, CBC #### [place] [address] [place] RBC (Bld) [#/Vol] 4.16 10*6/uL Normal 3.60-5.00 [facility] Comment on above: Performed By: #### C MP, CBC #### [address] WBC (Bld) [#/Vol] 8.4 10*3/uL Normal 4.5-11.0 [facility] Comment on above: Performed By: #### C MP, CBC #### [address] Comprehensive Metabolic Pane thomas 07-07-2021 Albumin [Mass/Vol] 3.9 g/dL Normal 3.2-5.5 [facility] Comment on above: Performed By: #### C MP, CBC #### [address] Albumin/Globulin [Mass ratio] 1.3 {ratio} Normal [facility] Comment on above: Performed By: #### C MP, CBC #### [address] ALP [Catalytic activity/Vol] 89 U/L Normal 32-92 [facility] Comment on above: Result Comment: PERF ORMED BY: [place] [address] PATHOLOGIST EMERGENCY MEDICAL TECH KRISTIE BUENO M.D. Performed By: #### C MP, CBC #### [address] ALT [Catalytic activity/Vol] 16 U/L Normal 10-60 [facility] Comment on above: Performed By: #### C MP, CBC #### [address] AST [Catalytic activity/Vol] 20 U/L Normal 10-42 [facility] Comment on above: Performed By: #### C MP, CBC #### [address] Bilirubin [Mass/Vol] 0.8 mg/dL Normal 0.3-1.2 [facility] Comment on above: Performed By: #### C MP, CBC #### [facility] [address] [place] [id number] [place] Calcium [Mass/Vol] 9.4 mg/dL Normal 8.2-10.2 [facility] Comment on above: Performed By: #### C MP, CBC #### [facility] [address] [place] [phone] [place] Chloride [Moles/Vol] 96 mmol/L Normal 95-114 [facility] Comment on above: Performed By: #### C MP, CBC #### [facility] [address] [place] [address] [place] CO2 [Moles/Vol] 28.0 mmol/L Normal 22.0-30.0 [facility] Comment on above: Performed By: #### C MP, CBC #### [facility] [address] Creatinine [Mass/Vol] 0.68 mg/dL Normal 0.44-1.03 [facility] Comment on above: Performed By: #### C MP, CBC #### [facility] [address] [place] [address] [place] Estimated GFR ( Milvia > 60 [facility] Comment on above: Result Comment: GFR estimated reference range: According to KDOQI guidelines, <60 ml/min/1.73m2 is sufficient to diagnose a patient with chronic kidney disease. Performed By: #### C MP, CBC #### [facility] [address] [place] [address] [place] Estimated GFR (Non- Am > 60 [facility] Comment on above: Performed By: #### C MP, CBC #### [facility] [address] [place] [phone] [place] Globulin (S) [Mass/Vol] 3.0 g/dL [facility] Comment on above: Performed By: #### C MP, CBC #### [facility] [address] [place] [phone] [place] Glucose [Mass/Vol] 105 mg/dL High 70-100 [facility] Comment on above: Result Comment: [place] om Glucose Reference Range is dependent on time and content of last meal. Glucose of more than 200 mg/dL in a nonstressed, ambulatory subject supports the diagnosis of Diabetes Mellitus. ADA recommended reference range Performed By: #### C MP, CBC #### [facility] [address] Potassium [Moles/Vol] 4.1 mmol/L Normal 3.5-5.1 [facility] Comment on above: Performed By: #### C MP, CBC #### [facility] [address] Protein [Mass/Vol] 6.9 g/dL Normal 6.1-7.9 [facility] Comment on above: Performed By: #### C MP, CBC #### [facility] [address] Sodium [Moles/Vol] 135 mmol/L Low 136-146 [facility] Comment on above: Performed By: #### C MP, CBC #### [facility] [address] Urea nitrogen [Mass/Vol] 17 mg/dL Normal 9-23 [facility] Comment on above: Performed By: #### C MP, CBC #### [facility] [address] ECG 12 lead ECGon 07-07-2021 ECG 12 lead ECG [facility] [address] [place] [address] [place] [address] Electrocardiograph Report Signed Patient: Jovita Stiles MR#: [id number] 22 : 1940 Acct:[id number] Age/Sex: 80 / F ADM Date: 07/07/21 Loc: Room: Type: [facility] Attending Dr: Camron Davis MD Ordering Provider: Camron Davis MD Date of Service: 07/07/21 ECG/ECG 12 lead ECG: ORIF LEFT DISTAL RADIUS FRACTURE Copies to: Test Reason : Blood Pressure : / mmHG Vent. Rate : 047 BPM Atrial Rate : 047 BPM P-R Int : 166 ms QRS Dur : 082 ms QT Int : 458 ms P-R-T Axes : 052 012 044 degrees QTc Int : 405 ms Marked sinus bradycardia Incomplete right bundle branch block Otherwise normal ECG No prior tracing Confirmed by WANDA VARGHESE MD ([id number]) on 07/07/2021 10:55:53 PM Referred By: ODALYS Electronically Signed By:WANDA VARGHESE MD Transcribed By: NERI Dictated By: Wanda Varghese MD 07/07/21 0162 Signed By: 07/07/21 8172 Normal [facility] XR WRIST LT MIN 3 Von 2020 XR WRIST LT MIN 3 V EXAM: XR WRIST LT MIN 3 V 06/30/2021 3:59 AM EDT [facility] CLINICAL STATEMENT: Falls COMPARISON: 10/09/2021 TECHNIQUE: AP and lateral views of the left wrist are submitted. FINDINGS: Improvement the post reduction alignment and the intra-articular distal radial and mediastinal fracture. Soft tissue swelling. Cast material in place. Bone mineralization is osteopenic for the patient's age. IMPRESSION: Improvement the post reduction alignment and the intra-articular distal radial and mediastinal fracture. Soft tissue swelling. Cast material in place. FOLLOW UP: Follow-up as clinically indicated. Electronically authenticated by: CHUYITA SAID Date: 2021-06-30 04:38 Normal [facility] XR WRIST LT MIN 3 V EXAM: XR WRIST LT MIN 3 V 06/30/2021 2:11 AM EDT [facility]001 CLINICAL STATEMENT: Falls COMPARISON: No prior studies are available at the time of dictation. TECHNIQUE: AP and lateral views of the left wrist are submitted. FINDINGS: Comminuted and displaced intra-articular distal radial and ulnar styloid fractures. Wrist soft tissue swelling. Bone mineralization is osteopenic for the patient's age. IMPRESSION: Comminuted and displaced intra-articular distal radial and ulnar styloid fractures. Osteopenia. Wrist soft tissue swelling. FOLLOW UP: Follow-up as clinically indicated. Electronically authenticated by: CHUYITA SAID Date: 2021-06-30 03:08 Normal [facility] Vital Signs Date Time Vital Sign Value Performing Clinician Facility 09-24-2024 12:52-0500 Body mass index (BMI) [Ratio] 24.5 kg/m2 [facility] 09-24-2024 12:52-0500 Diastolic blood pressure 80 mm[Hg] [facility] 09-24-2024 12:52-0500 Heart rate 59 /min [facility] 09-24-2024 12:52-0500 Systolic blood pressure 156 mm[Hg] [facility] 09-24-2024 12:48-0500 Body height 157.48 cm [facility] 09-24-2024 12:48-0500 Body weight 60.78 kg [facility] 09-05-2024 13:52-0400 Body height 160 cm Jeanette Tijerina MD Work Phone: [facility] 09-05-2024 13:52-0400 Body mass index (BMI) [Ratio] 24.27 kg/m2 Jeanette Tijerina MD Work Phone: [facility] 09-05-2024 13:52-0400 Body weight 62.14 kg Jeanette Tijerina MD Work Phone: [facility] 09-05-2024 13:52-0400 Diastolic blood pressure 82 mm[Hg] Jeanette Tijerina MD Work Phone: [facility] 09-05-2024 13:52-0400 Heart rate 54 /min Jeanette Tijerina MD Work Phone: [facility] 09-05-2024 13:52-0400 SaO2% (BldA) [Mass fraction] 93 % Jeanette Tijerina MD Work Phone: [facility] 09-05-2024 13:52-0400 Systolic blood pressure 130 mm[Hg] Jeanette Tijerina MD Work Phone: [facility] 09-21-2023 14:15-0400 Body height 157.48 cm Frederick Joe Other [employer] Other 09-21-2023 14:15-0400 Body mass index (BMI) [Ratio] 23.77 kg/m2 Frederick Joe Other [employer] Other 09-21-2023 14:15-0400 Body weight 58.97 kg Frederick Joe Other [employer] Other 09-21-2023 14:15-0400 Diastolic blood pressure 70 mm[Hg] Frederick Joe Other [employer] Other 09-21-2023 14:15-0400 Systolic blood pressure 144 mm[Hg] Frederick Joe Other [employer] Other 10-18-2022 14:45-0500 Body height 157.48 cm Frederick Joe Other [employer] Other 10-18-2022 14:45-0500 Body mass index (BMI) [Ratio] 24.69 kg/m2 Frederick Joe Other [employer] Other 10-18-2022 14:45-0500 Body weight 61.24 kg Frederick Joe Other [employer] Other 10-18-2022 14:45-0500 Diastolic blood pressure 91 mm[Hg] Frederick Joe Other [employer] Other 10-18-2022 14:45-0500 Systolic blood pressure 158 mm[Hg] Frederick Joe Other [employer] Other 07-19-2022 15:15-0400 Body height 157.48 cm Frederick Joe Other [employer] Other 07-19-2022 15:15-0400 Body mass index (BMI) [Ratio] 24.87 kg/m2 Frederick Joe Other [employer] Other 07-19-2022 15:15-0400 Body weight 61.69 kg Frederick Joe Other [employer] Other 05-11-2022 11:10-0400 Body height 157.48 cm Alexandria Fisher Other [employer] Other 05-11-2022 11:10-0400 Body mass index (BMI) [Ratio] 25.2 kg/m2 Alexandria Natalia Other [employer] Other 05-11-2022 11:10-0400 Body temperature 98.2 [degF] Alexandria Malonemond Other [employer] Other 05-11-2022 11:10-0400 Body weight 62.51 kg Alexandria Malonemond Other [employer] Other 05-11-2022 11:10-0400 Diastolic blood pressure 70 mm[Hg] Alexandria Fisher Other [employer] Other 05-11-2022 11:10-0400 Respiratory rate 18 /min Alexandria Malonemond Other [employer] Other 05-11-2022 11:10-0400 SaO2% (BldA) [Mass fraction] 98 % Alexandria Natalia Other [employer] Other 05-11-2022 11:10-0400 Systolic blood pressure 170 mm[Hg] Alexandria Natalia Other [employer] Other 04-28-2022 14:30-0400 Body height 157.48 cm Frederick Joe Other [employer] Other 04-28-2022 14:30-0400 Body mass index (BMI) [Ratio] 25.42 kg/m2 Frederick Jayack Other [employer] Other 04-28-2022 14:30-0400 Body weight 63.05 kg Frederick Joe Other [employer] Other 11-02-2021 11:15-0500 Body height 157.48 cm Jeanette Brandt Other [employer] Other 11-02-2021 11:15-0500 Body mass index (BMI) [Ratio] 26.15 kg/m2 Jeanette Brandt Other [employer] Other 11-02-2021 11:15-0500 Body weight 64.86 kg Jeanette Brandt Other [employer] Other 09-07-2021 10:45-0400 Body height 157.48 cm Camron Davis Other [employer] Other 09-07-2021 10:45-0400 Body mass index (BMI) [Ratio] 25.97 kg/m2 Camron Davis Other [employer] Other 09-07-2021 10:45-0400 Body weight 64.41 kg Camron Davis Other [employer] Other Encounters Encounter Date Encounter Type Care Provider Facility Start: 09-24-2024 End: 09-24-2024 ambulatory [facility] Work Phone: Start: 09-24-2024 End: 09-24-2024 Patient encounter procedure On License Of [facility] Work Phone: Start: 09-21-2024 End: 09-23-2024 Sulma Tijerina MD Work Phone: [facility] Comment on above: Essential (primary) hypertension (CMS/HCC) Start: 09-05-2024 End: 09-05-2024 Anna Tijerina MD Work Phone: [facility] Start: 09-05-2024 End: 09-05-2024 Anna flowsheet Jeanette Tijerina MD Work Phone: [facility] Start: 09-05-2024 End: 09-05-2024 Office outpatient visit 15 minutes Jeanette Tijerina MD Work Phone: [facility] Comment on above: Essential (primary) hypertension (CMS/HCC) (Primary Dx); Encounter for immunization Start: 09-05-2024 End: 09-05-2024 ambulatory JEANETTE TIJERINA Not Available Start: 03-05-2024 End: 03-05-2024 ambulatory JEANETTE TIJERINA Not Available Start: 09-21-2023 End: 09-21-2023 ambulatory Frederick Joe Other [employer] Other Start: 09-21-2023 Office outpatient visit 15 minutes Frederick Joe [facility] Start: 10-18-2022 End: 10-18-2022 ambulatory Frederick Joe Other [employer] Other Start: 10-18-2022 Office outpatient visit 15 minutes Frederick Joe [facility] Start: 07-19-2022 End: 07-19-2022 ambulatory Frederick Joe Other [employer] Other Start: 07-19-2022 Office outpatient visit 15 minutes Frederick Joe [facility] Start: 05-24-2022 End: 05-24-2022 ambulatory Frederick Joe Other [employer] Other Start: 05-24-2022 Telephone encounter Frederick Shore ck [facility] Start: 05-13-2022 End: 05-13-2022 ambulatory KRISTIAN PEREZ Facility:[facility] Start: 05-11-2022 End: 05-11-2022 ambulatory Alexandria Natalia Other [employer] Other Start: 05-11-2022 Office outpatient visit 15 minutes Alexandria Natalia [facility] Start: 04-28-2022 End: 04-28-2022 ambulatory Frederick Joe Other [employer] Other Start: 04-28-2022 Office outpatient ne w 45 minutes Frederick Joe [facility] Start: 11-02-2021 End: 11-02-2021 ambulatory Jeanette Brandt Other [employer] Other Start: 11-02-2021 Office outpatient visit 15 minutes Jeanette Brandt [facility] Start: 09-07-2021 End: 09-07-2021 ambulatory Camron Davis Other [employer] Other Start: 09-07-2021 Postop follow up vis it related to original px Camron Davis [facility] Start: 07-06-2021 ambulatory WANDA CASTILLO Facility:[facility] 1 Start: 06-30-2021 End: 06-30-[address] ANA ARIAS Facility:[facility] Plan of Treatment Date Care Activity Detail Author Start: 03-06-2025 End: 03-06-2025 Patient encounter procedure 03/06/2025 1:00 PM EDT Office Visit [facility] [address] [place] [address] Jeanette Tijerina MD [address] [facility] [place] [address] [facility] Start: 03-05-2025 Medicare Annual Well ness (AWV) Medicare Annual Wellness (AWV) [facility] Start: 09-05-2024 End: 09-05-2024 Patient encounter procedure 09/05/2024 2:00 PM EDT Office Visit [facility] [address] [facility] [place] [address] Jeanette Tijerina MD [address] [facility] [place] [address] Arrived [facility] Comment on above: Arrived Start: 07-21-2024 Influenza vaccination Influenza Vacc ine (#1) [facility] Start: 2006 Pneumococcal Vaccine : 65+ Years (1 of 1 - PCV) Pneumococcal Vaccine: 65+ Years (1 of 1 - PCV) [facility] Immunizations Immunization Date Immunization Notes Care Provider Fa cility 09-05-2024 influenza, high dose seasonal, preservative-free Jeanette Tijerina MD Work Phone: [facility] 09-05-2024 Pneumococcal Conjuga te PCV 20 Jeanette Tijerina MD Work Phone: [facility] 08-29-2023 influenza, high dose seasonal, preservative-free Jeanette Tijerina MD Work Phone: [facility] 08-29-2023 influenza virus vaccine, unspecified formulation Jeanette Tijerina MD Work Phone: [facility] 08-26-2022 influenza, high dose seasonal, preservative-free Jeanette Tijerina MD Work Phone: [facility] 08-26-2022 Influenza, High-dose Seasonal, Quadrivalent, Preservative Free Jeanette Tijerina MD Work Phone: [facility] 09-22-2021 COVID-19 mRNA, Comirnaty (Pfizer) [facility] 08-17-2021 influenza, high dose seasonal, preservative-free Jeanette Tijerina MD Work Phone: [facility] 08-17-2021 Influenza, High-dose Seasonal, Quadrivalent, Preservative Free Jeanette Tijerina MD Work Phone: [facility] 03-12-2021 Moderna SARS-CoV-2 Vaccination Jeanette Tijerina MD Work Phone: [facility] 01-19-2021 COVID-19 mRNA, Comirnaty (Pfizer) [facility] 09-01-2020 Influenza, injectabl e, Madin Gris Canine Kidney, preservative free, quadrivalent Jeanette Tijerina MD Work Phone: [facility] 02-10-2020 Pfizer Purple Cap SARS-CoV-2 Vaccination Jeanette Tijerina MD Work Phone: [facility] 09-24-2019 influenza, high dose seasonal, preservative-free Jeanette Tijerina MD Work Phone: [facility] 09-07-2018 Influenza, injectabl e, Madin [place] Canine Kidney, preservative free, quadrivalent Jeanette Tijerina MD Work Phone: [facility] 09-11-2017 influenza, seasonal, injectable, preservative free Jeanette Tijerina MD Work Phone: [facility] Work Phone: Payers Date Payer Category Payer Medicare (Managed Care) ROSY DONIS [facility] [id number] 1958 Medicare [id number] 1940 Unknown [id number] 1940 Unknown [id number] 1941 Unknown [id number] 1941 Unknown [id number] 1940 Unknown [id number] Blue Cross Blue Shield [id number] Self-pay Self Pay [id number] Social History Date Type Detail Facility Start: 03-05-2024 End: 09-05-2024 Sex Assigned At [facility] Work Phone: Start: 05-26-2022 End: 08-29-2023 Tobacco smoking status [facility] Never smoked tobacco [facility] Start: 08-29-2023 Tobacco use and exposure Smokeless tobacco non-user [facility] Start: 03-05-2024 End: 09-05-2024 Alcoholic beverage intake Ex-drinker (finding) [facility] Start: 03-05-2024 End: 09-05-2024 History of Social function [facility] Work Phone: Start: 08-28-2023 Alcohol Comment Caffeine intak e: 1-2 cups per day coffee [facility] Start: 1940 Sex assigned at Not on file N [facility] Start: 1940 Sex Assigned At Female F [facility] Medical Equipment Procedure Code Equipment Code Equipment Origin al Text Equipment Identifier Dates ORIF, fracture, wrist Orthopaedic fixation plate, non-bioabsorbable, sterile ()[id number] FDA Start: 07-08-2021 ORIF, fracture, wrist Orthopaedic bone screw, non-bioabsorbable, non-sterile ()[id number] FDA Start: 07-08-2021 ORIF, fracture, wrist Orthopaedic bone screw, non-bioabsorbable, non-sterile ()[id number] FDA Start: 07-08-2021 ORIF, fracture, wrist Orthopaedic bone screw, non-bioabsorbable, non-sterile ()[id number] FDA Start: 07-08-2021 ORIF, fracture, wrist Orthopaedic bone screw, non-bioabsorbable, non-sterile ()[id number] FDA Start: 07-08-2021 ORIF, fracture, wrist Orthopaedic bone screw, non-bioabsorbable, non-sterile ()[id number] FDA Start: 07-08-2021 Clinical Notes 09-07-2021 to 09-23-2024 Telephone Encounter - Jeanette Tijerina MD - 09/23/2024 6:31 PM ESTTelephone Encounter - Jeanette Tijerina MD - 09/23/2024 6:31 PM Raymond Tijerina MD - 09/05/2024 2:00 PM EDT Note Date & Type Note Facility 09-23-2024 Telephone encount er Note Refills sent. [facility] 09-23-2024 Miscellaneous Notes Formattin g of this note might be different from the original. Refills sent. documented in this encounter [facility] 09-05-2024 History of Presen t illness Narrative Images from the original note were not included. Jovita Stiles is a 83 y.o. female presents with chief complaint of No chief complaint on file. HPI: HPI History of Present Illness The patient presents for a routine checkup. She is currently on bisoprolol for blood pressure management and reports no symptoms of hypertension such as headaches, blurry vision, or chest pain. 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 A new medication was prescribed for her glaucoma, but she has not yet started it due to a lack of refills. She is also interested in receiving the COVID-19 vaccine. SUBJECTIVE: MEDICATIONS: Current Outpatient Medications Medication Instructions acetaminophen (TYLENOL) 500 mg, Every 6 hours PRN balsalazide (Colazal) 750 MG capsule 2 capsules, Every 12 hours bisoprolol-hydroCHLOROthiazide (Ziac) 10-6.25 MG tablet TAKE 1 TABLET BY MOUTH 1 TIME EACH DAY AT THE SAME TIME. latanoprost (Xalatan) 0.005 % ophthalmic solution 1 drop, Every 24 hours Multiple Vitamins-Minerals (Multivitamin Adult, Minerals,) tablet 1 tablet, Daily timolol (Timoptic) 0.5 % ophthalmic solution 1 drop, Every 24 hours I have reviewed and reconciled the history and medication list with the patient today. REVIEW OF SYMPTOMS: Review of Systems All other systems reviewed and are negative. OBJECTIVE: Visit Vitals BP 130/82 Pulse 54 Ht 5' 3 Wt 137 lb SpO2 93% BMI 24.27 kg/m Smoking Status Never BSA 1.66 m Physical Exam Vitals and nursing note reviewed. Constitutional: Appearance: Normal appearance. HENT: Head: Normocephalic and atraumatic. Mouth/Throat: Mouth: Mucous membranes are moist. Cardiovascular: Rate and Rhythm: Normal rate and regular rhythm. Pulses: Normal pulses. Heart sounds: Normal heart sounds. Pulmonary: Effort: Pulmonary effort is normal. Breath sounds: Normal breath sounds. Musculoskeletal: Cervical back: Normal range of motion and neck supple. Skin: General: Skin is warm and dry. Capillary Refill: Capillary refill takes less than 2 seconds. Neurological: General: No focal deficit present. Mental Status: She is alert. Psychiatric: Mood and Affect: Mood normal. ASSESSMENT AND PLAN: Assessment & Plan 1. Hypertension. Her blood pressure readings are within the normal range today. She is currently taking Ziac (Bisoprolol). No symptoms such as headaches, blurry vision, or chest pain have been reported. No refill is needed for her blood pressure medication at this time. 2. Glaucoma. She reports having glaucoma and has an appointment next week with her adolescent specialist. A new medication will be added to her regimen, but she has not yet received a refill for it. 3. Health Maintenance. She received her flu shot today. She is due for the Prevnar 20 pneumonia vaccine, which will be administered today as it has been more than 5 years since her last pneumonia shot. It is recommended that she wait for 2 weeks before getting the COVID-19 vaccine. Her last metabolic panel in February 2023 was normal, and she does not require any blood work today. Her cholesterol levels were normal in February 2023, and she is not on cholesterol medication. Assessment/Plan Problem List Items Addressed This Visit Essential (primary) hypertension (CMS/HCC) - Primary Other Visit Diagnoses Encounter for immunization Relevant Orders Flu vaccine, high dose seasonal, PF ([id number]) (Fluzone High Dose) (Completed) Pneumococcal conjugate vaccine 20-valent IM (Completed) documented in this encounter [facility] 09-21-2023 Evaluation note Encounter Date Diagnosis Assessment Notes Sep, Ulcerative colitis (ICD-10 - K51.90) PATIENT TO START USE OF DAILY METAMUCIL GUMMIES. PATIENT IS DUE FOR REPEAT COLONOSCOPY FOR HX OF COLON POLYPS. [employer] Other 11-29-2022 Evaluation note* Encounter Date Diagnosis Assessment Notes Treatment Notes Treatment Clinical Notes Sep, Diarrhea (ICD-10 - R19.7) Sep, Ulcerative colitis (ICD-10 - K51.90) START LOW FODMAP DIET-EDUCATION HANDOUT GIVEN TO PT CONTINUE BALSALAZIDE 1 CAPSULE THREE TIMES A DAY RTO 1 YR Sep, Serrated adenoma of colon (ICD-10 - D12.6) REPEAT COLONOSCOPY 1 YR [employer] Other 08-30-2022 Evaluation note* Encounter Date Diagnosis Assessment Notes Treatment Notes Treatment Clinical Notes Jun, Abdominal cramping (ICD-10 - R10.9) Jun, Diarrhea (ICD-10 - R19.7) PATIENT TO CONTINUE ON THE MEDICATION. Jun, Rectal bleeding (ICD-10 - K62.5) Jun, Serrated adenoma of colon (ICD-10 - D12.6) PATIENT IS ADVISED WE WILL RECHECK THE COLON IN 3 YEARS Jun, Hemorrhoids (ICD-10 - K64.9) [employer] Other 07-05-2022 Evaluation note* Encounter Date Diagnosis Assessment Notes Treatment Notes Treatment Clinical Notes May, Ulcerative colitis (ICD-10 - K51.90) [employer] Other 06-22-2022 Evaluation note* Encounter Date Diagnosis Assessment Notes Treatment Notes Treatment Clinical Notes Apr, Strain of neck muscle, initial encounter (ICD-10 - S16.1XXA) Drink plenty fluids, get plenty of rest. Take the cyclobenzaprine as prescribed as needed for neck pain and stiffness. You may take 1 extra strength Tylenol up to 4 times a day as needed for pain. Consider applying an icy hot type of ointment to your neck for comfort. Use heat or ice to your neck for comfort. Follow-up with your family physician if no improvement in 2 to 3 days. [employer] Other 06-09-2022 Evaluation note* Encounter Date Diagnosis Assessment Notes Treatment Notes Treatment Clinical Notes Apr, Blood in stool (ICD-10 - K92.1) THIS IS SOMEDAYS NOT EVERYDAY Apr, Ulcerative colitis (ICD-10 - K51.90) PATIENT WAS ON ASACOL PREVIOUSLY. PATIENT DOES HAVE CRAMPING, PAIN AND LOOSE STOOLS. PATIENT TO PROCEED WITH COLONOSCOPY [employer] Other 12-14-2021 Evaluation note* Encounter Date Diagnosis Assessment Notes Treatment Notes Treatment Clinical Notes Oct, Other intraarticular fracture of lower end of left radius, subsequent encounter for closed fracture with routine healing (ICD-10 - S52.572D) Patient is progressing well from surgery. We discussed the importance of continuing to work on range of motion and strength exercise. Discussed that occasional aches and pains are normal with changing of the weather. To call with questions or concerns. Oct, Other specified postprocedural states (ICD-10 - Z98.890) [employer] Other 10-19-2021 Evaluation note* Encounter Date Diagnosis Assessment Notes Treatment Notes Treatment Clinical Notes Aug, Other intraarticular fracture of lower end of left radius, subsequent encounter for closed fracture with routine healing (ICD-10 - S52.572D) Radiograph results reviewed with patient. Patient is progressing well from surgery. Continue gentle motion/strengthen ing. Call with questions/concern s. Aug, Other specified postprocedural states (ICD-10 - Z98.890) [employer] Other Evaluation note* Diagnosis Essential (primary) hypertension (CMS/HCC)- Primary Unspecified essential hypertension Encounter for immunization [facility] Diagnosis Essential (primary) hypertension (CMS/HCC) Unspecified essential hypertension [facility] Diagnosis Onset Date Resolution Status Ulcerative colitis acute [facility] Work Phone: History general Narrative - Reported* Type Description Date Medical History high blood pressure Surgical History thyroid nodule removed-right si de Surgical History ORIF Left distal radius 2020 [employer] Other Summary Purpose Family History Relationship Condition Age at Onset Recorded Date/T tiff mother Cerebrovascular accident (CVA) Unknown father Hypertension Unknown brother Diabetes mellitus Unknown Hypertension Unknown father Unknown mother Unknown Advance Directives Advance Directive Response Recorded Date/ Time Advance Directives No July 07, 2021 3:37pm Chief Complaint and Reason for Visit Chief Complaint 1 YEAR FOLLOW UP/GOOD [facility] ERATIVE COLITIS Reason for Visit Ulcerative colitis Additional Source Comments INFORMATION SOURCE (unrecogn ized section and content) DATE CREATED AUTHOR 04/22/2022 [facility] Me dical Specialist DATE CREATED AUTHOR AUTHOR'S ORGANIZ ATION 05/18/2022 [facility] pital DATE CREATED AUTHOR AUTHOR'S ORGANIZ ATION 05/31/2022 [facility] DATE CREATED AUTHOR AUTHOR'S ORGANIZ ATION 09/08/2024 [facility] dical Specialists EPIC REASON FOR VISIT (unrecogniz ed section and content) Reason Comments Med Refill Care Teams (unrecognized sec tion and content) Featheredge Machine Operator Relationship Specialty Start Date End Date Jeanette Tijerina MD [address] [place] [address] PCP - Rosy HACKETT 10/20/22 Jeanette Tijerina MD [address] [place] [address] PCP - General Family Medicine 03/28/23 Featheredge Machine Operator Relationship Specialty Start Date End Date Jeanette Tijerina MD [address] [place], [place] [id number] PCP - Rosy HACKETT 10/20/22 Jeanette Tijerina MD [address] [facility] [place] [address] PCP - General Family Medicine 03/28/23 Featheredge Machine Operator Relationship Specialty Start Date End Date Jeanette Tijerina MD [address] [facility] [place], [place] [id number] PCP - Rosy HACKETT 10/20/22 Jeanette Tijerina MD [address] [facility] [place], [place] [id number] PCP - General Family Medicine 03/28/23 Team Status: Active Member Role Status Dates Jeanette Tijerina MD Primary Care Provide r Active Team Status: Inactive Member Role Status Dates Jeanette Tijerina MD Primary Care Provider Active Start: September End: September 24, 2024 Tabitha Kowalski DO Attending Provider Active St art: September 24, 2024 End: September 24, 2024 Goals (unrecognized section and content) Goals may be documented in a n alternate section FOR RECORDS PERTAINING TO PATIENTS WHO ARE OR HAVE BEEN ENROLLED IN A CHEMICAL DEPENDENCY/SUBSTANCEABUSE PROGRAM, SOME INFORMATION MAY BE OMITTED. This clinical summary was aggregated from multiple sources. Caution should be exercised in using it in the provision of clinical care. This summary normalizes information from multiple sources, and as a consequence, information in this document may materially change the coding, format and clinical context of patient data. In addition, data may be omitted in some cases. CLINICAL DECISIONS SHOULD BE BASED ON THE PRIMARY CLINICAL RECORDS. [employer] provides no warranty or guarantee of the accuracy or completeness of information in this document.
[2024-10-08 14:15] VITALS: BP 142/96; PULSE 54; O2SAT 100
== END 2024-10-08 14:19 | disposition home or self-care (01) ==
PROVIDERS: Emergency Provider Emergency Medicine; PCP Family Medicine
DX: S00.03XA Contusion of scalp, initial encounter (principal); W18.39XA Other fall on same level, initial encounter
CPT/HCPCS: 70450; 99284

== ENCOUNTER 2025-03-29 17:38 | Emergency (ER) | payer MEDICARE, SELFPAY ==
[2025-03-29] VITALS (34 sets, daily range): BP systolic 146–201; BP diastolic 75–122; PULSE 58–66; TEMP 36.7–36.9; O2SAT 86–98; BMI 24.3
--- OUTSIDE RECORDS SUMMARY | 2025-03-29 17:46 | XMS_ITS | CCD ---
Author Organization [facility] CliniSywa Care Team Providers Care Marine Fireman Name Role Phone Alexandria Fisher Unavailable Camron Davis Unavailable Jeanette Brandt Unavailable Frederick Joe Unavailable KRISTIAN PEREZ Admitting Unavailable KRISTIAN PEREZ Attending Unavailable LILLIANA, DR CASTREJON Primary Care Unavailable JULIANA, DR ESTHER Rogers Consulting Unavailable DORINDA, OSITO Ding Consulting Unavailable HUGO, DR ANA Rogers Admitting Unavailable HUGO, DR ANA Rogers Attending Unavailable MISC, DR LOMBARDO Primary Care Unavailable HUGO, DR ANA Rogers Consulting Unavailable CHUYITA MARR Unavailable WANDA CASTILLO Admitting Unavailable WANDA CASTILLO Attending Unavailable SHAKIRA, DR LOMBARDO Primary Care Unavailable Jeanette Tijerina MD Unavailable Jeanette Tijerina MD Primary Care Provider Berkley Hernandez LPN Unavailable JEANETTE TIJERINA Attending Unavailable JEANETTE TIJERINA Attending Unavailable JEANETTE TIJERINA Referring Unavailable NENA ASCENCIO Attending Unavailable NENA ASCENCIO Referring Unavailable JEANETTE TIJERINA Attending Unavailable Medications Current Medications Medication Drug Class(es) Dates Sig (Normalized) Sig (Original) acetaminophen 500 mg oral tablet (19 sources) Start: 05-26-2022 take 1 tablet by mouth every six hours as needed for pain Acetaminophen 500 mg Tablet Active 500 MG PO Q6H as needed for Pain May 25, 2022 11:00pm Acetaminophen NM N Active Acetaminophen Ac tive [id number] actuat albuterol 0.09 mg/actuat metered dose inhaler (4 sources) beta2-Adrenergic Agonist Start: 02-04-2025 End: 02-04-2026 take 2 puff(s) by inhalation every four hours for wheezing albuterol HFA 90 mcg/act inhaler Indications: Acute cough Inhale 2 puffs every 4 (four) hours if needed for wheezing or shortness of breath 18 g 02/04/2025 02/04/2026 Active bisoprolol fumarate 10 mg / hydroCHLOROthiazide 6.25 mg oral tablet (20 sources) Thiazide Diuretic, beta-Adrenergic Fidencio Start: 07-07-2021 End: 03-22-2025 take 1 tablet by mouth once daily bisoprolol-hydroCH LOROthiazide (Ziac) 10-6.25 MG tablet Indications: Essential (primary) hypertension (CMS/HCC) TAKE 1 TABLET BY MOUTH EVERY DAY AT THE SAME TIME 90 tablet 1 03/22/2025 Active cyclobenzaprine hydrochloride 5 mg oral tablet (2 sources) Muscle Relaxant Start: 05-11-2022 take 1 tablet by mouth three times daily as needed Cyclobenzaprine HCl 5 MG 1 tab(s) Orally 3 times a day prn muscle spasms Take 1 tablet by mouth 3 times a day as needed for neck stiffness. Be aware this will make you very tired Apr, Active dorzolamide 20 mg/ml / timolol 5 mg/ml ophthalmic solution (7 sources) Carbonic Anhydrase Inhibitor, beta-Adrenergic Fidencio Start: 09-23-2024 dorzolamide-timolo l (Cosopt) 2-0.5 % ophthalmic solution INSTILL 1 DROP INTO BOTH EYES TWICE A DAY DIRECTED 09/23/2024 Active latanoprost 0.05 mg/ml ophthalmic solution (20 sources) Prostaglandin Analog Start: 07-07-2021 take 1 drop(s) into the eye(s) once daily at bedtime Latanoprost 0.005 % drops Active 0.005 DROPS EYE-BOTH Daily at bedtime July 06, 2021 11:00pm Start: 07-07-2021 take 1 drop(s) into the [...] mesalamine 800 mg delayed release oral tablet (9 sources) Aminosalicylate Start: 09-24-2024 mesalamine (As acol) 800 MG EC tablet PLEASE SEE ATTACHED FOR DETAILED DIRECTIONS 09/25/2024 Active Start: 09-24-2024 take 1 dose by mouth three times daily Mesalamine Active 1600 MG PO Three times daily 180 30 September 24, 2024 12:00am must be taken on empty stomach; no food 1 hr after or 2-3 hrs before dose Multiple Vitamins-Minerals (MULTIVITAMIN ADULT, MINERALS, PO) (7 sources) Start: 09-24-2024 Multiple Vitam ins-Minerals (MULTIVITAMIN ADULT, MINERALS, PO) 09/24/2024 Active Multivitamin preparation (4 sources) Start: 09-24-2024 multivitamin A ctive PO September 24, 2024 12:00am Multivitamin Act alexander Completed/Discontinued Medications Medication Drug Class(es) Dates Sig (Normalized) Sig (Original) acetaminophen 325 mg / oxyCODONE hydrochloride 5 mg oral tablet (4 sources) Opioid Agonist Start: 07-08-2021 End: 05-26-2022 take 1 tablet by mouth every four to six hours as needed for pain Oxycodone-Acetamino phen (Percocet) 5-325 mg tablet Discontinued 1 - 2 TAB PO EVERY 4-6 HOURS as needed for pain 30 July 08, 2021 May 26, 2022 8:01am Start: 07-07-2021 End: 05-26-2022 take 5 tablets by mouth every six hours as needed for pain Oxycodone-Acetaminophen 5-325 mg tablet Discontinued 5 TAB PO Every 6 hours as needed for Pain July 06, 2021 11:00pm May 26, 2022 8:01am balsalazide disodium 750 mg oral capsule (19 sources) Aminosalicylate Start: 05-26-2022 End: 12-26-2024 take 1 capsule by mouth twice daily Balsalazide 750 mg capsule Discontinued 750 MG PO Twice daily May 25, 2022 11:00pm December 26, 2024 1:41pm Start: 04-28-2022 take 3 capsules by m [...] by mouth every 12 (twelve) hours. Active methylPREDNISolone 4 mg oral tablet (3 sources) Corticosteroid Start: 04-04-2024 End: 09-05-2024 methylPREDNISolone (Medrol Dospak) 4 MG tablets Take 4 mg by mouth 1 (one) time TAKE 6 TABLETS ON DAY 1 DIRECTED ON PACKAGE AND DECREASE BY 1 TAB EACH DAY FOR A TOTAL OF 6 DAYS 04/04/2024 09/05/2024 Discontinued (Therapy completed) Multiple Vitamins-Minerals (Multivitamin Adult, Minerals,) tablet (7 sources) End: 11-05-2024 take 1 tablet by mouth once daily Multiple Vitamins-Minerals (Multivitamin Adult, Minerals,) tablet Take 1 tablet by mouth 1 (one) time each day. 11/05/2024 Discontinued (Therapy completed) take 1 tablet by mouth once my y Multiple Vitamins-Minerals (Multivitamin Adult, Minerals,) tablet Take 1 tablet by mouth 1 (one) time each day. Active Timolol (10 sources) beta-Adrenergic Fidencio Start: 09-24-2024 End: 11-05-2024 TIMOLOL MALEATE OP Daily 09/24/2024 11/05/2024 Discontinued (Therapy completed) Start: 09-24-2024 TIMOLOL MALEAT E OP Daily 09/24/2024 Active Start: 09-24-2024 take 1 drop(s) into the eye(s) once daily Timolol Maleate 0.5 % drops Active 1 DROPS EYE-BOTH Daily September 24, 2024 12:00am Start: 09-24-2024 take 1 drop(s) into the [...] Timolol Maleate 0.5 % 1 drop into affected eye Ophthalmic Once a day Active Problems Active Problems Problem Classification Problem Date Documented Da te Episodic/Chronic Abdominal pain (4 sources) Abdominal pain; Translations: [Unspecified abdominal pain] Onset: 2 Resolved: 2 Episodic Essential hypertension (17 sources) Essential hypertension; Translations: [Essential (primary) hypertension] Onset: 3 08-15-2023 Chronic Gastrointestinal hemorrhage (5 sources) Melena; Translations: [Rectal hemorrhage] Onset: 2 Resolved: 2 Episodic Gout and other crystal arthropathies (11 sources) Chondrocalcinosis due to pyrophosphate crystals; Translations: [Other chondrocalcinosis, unspecified site] Onset: 3 08-15-2023 Chronic Hemorrhoids (4 sources) Hemorrhoids; Translations: [Unspecified hemorrhoids] Onset: 2 Resolved: 2 Episodic Immunizations and screening for infectious disease (2 sources) Patient encounter status; Translations: [Encounter for immunization] 09-05-2024 Episodic Occlusion or stenosis of precerebral arteries (2 sources) Carotid atherosclerosis; Translations: [Occlusion and stenosis of unspecified carotid artery] 11-05-2024 Chronic Osteoporosis (2 sources) Osteoporosis; Translations: [Localized osteoporosis [[place]]] 03-06-2025 Chronic Other and unspecified benign neoplasm (3 sources) Benign neoplasm of colon; Translations: [Benign neoplasm of colon, unspecified] Episodic Other and unspecified benign neoplasm (2 sources) Benign neoplasm of colon, unspecified Onset: 2 Resolved: 2 Episodic Other gastrointestinal disorders (3 sources) Diarrhea; Translations: [Diarrhea, unspecified] Episodic Other gastrointestinal disorders (2 sources) Diarrhea, unspecified Onset: 2 Resolved: 2 Episodic Regional enteritis and ulcerative colitis (20 sources) Ulcerative colitis; Translations: [Ulcerative colitis, unspecified, [...] STRK OTH OBJ INT] Onset: 07-02-2021 Episodic Fracture of upper limb (13 sources) Other intraarticular fracture of lower end of left radius, subsequent encounter for closed fracture with routine healing; Translations: [Displaced fracture of left radial styloid process, initial encounter for closed fracture] Onset: 07-02-2021 Resolved: 11-02-2021 Episodic Other injuries and conditions due to [...] Test Name Value Interpretation Reference Range Facility XR CHEST 2 VIEWSon 5 XR CHEST 2 VIEWS TITLE OF EXAM: XR CHEST 2 VIEWS REASON FOR EXAM: Acute cough, dizziness TECHNIQUE: Two radiographs of the chest. COMPARISON: None FINDINGS: Hyperexpansion of the lungs with flattening of the hemidiaphragms. Diffuse small airway thickening/prominen ce and reticular opacities. No consolidation. No significant effusion or pneumothorax. The cardiomediastinal silhouette is normal. No acute osseous or upper abdominal abnormality. IMPRESSION: 1. No acute cardiopulmonary abnormality. 2. Chronic appearing small airways disease and fibrotic changes. 3. COPD versus significant inspiratory effort at the time of image acquisition. DICTATED ON: 02/04/2025 10:27 AM This report has been electronically signed in approved by the interpreting radiologist. Normal Not Available BI MAMMOGRAM SCREENING TOMOS YNTHESIS BILATERALon 12-24-2024 BI MAMMOGRAM SCREENING TOMOSYNTHESIS BILATERAL This is a summary report. The complete report is available in the patient's medical record. If you cannot access the medical record, please contact the sending organization for a detailed fax or copy. Examination: BI MAMMOGRAM SCREENING TOMOSYNTHESIS BILATERAL Clinical History: screening Technique: Screening digital mammography study of both breasts was performed with 2-D and 3-D tomosynthesis imaging. Study was compared to the prior exam dated 09/14/2015. Findings: There is no evidence of interval dominant spiculated mass, grouped microcalcifications , or skin thickening which would be suggestive of malignancy. Areas of benign-appearing asymmetric density bilaterally similar to the prior study likely representing focal fibroglandular tissue. Similar to the prior study compatible with fibroglandular tissue. Mild scattered benign-appearing calcifications bilaterally. Axillary lymph node on the noted and appears grossly unremarkable. IMPRESSION: Impression: No specific evidence of malignancy seen in either breast. BIRADS 2 - Benign Findings DENSITY: There are scattered areas of fibroglandular density. FOLLOW-UP: Routine Screening Mammogram ELECTRONICALLY SIGNED BY: Alex Cervantes M.D. Normal Not Available [facility] 05-26-2022 Specimen: [id number] Received: 05/26/22 Status: JENIFERGucci Matute Num: [id number] Spec Type: Surgical Subm Dr: Frederick Joe MD Tissues: A Colon Biopsy (SURVEILLANCE BX) B Colon - Polyp (RECTUM POLYP) Procedures: HE Stain/4, Gross/Micro L4/2 Patient Age/Sex Location Account Attending Physician Jovita Stiles 81/F [id number] Frederick Joe MD SPEC NUM: [id number] RECD: 05/26/22 STATUS: JORGE MATUTE NUM: [id number] DANA: 05/26/22- DR: Frederick Joe MD ENTERED: 05/26/[address] [facility] [address]: JACI TYPE: Surgical DEPT: S ORDERED: HE Stain/4, [...] in one cassette labeled B1. (LG/) Specimen: [id number] Received: 05/26/22 Status: JORGE Matute Num: [id number] Spec Type: Surgical Subm Dr: Frederick Joe MD Tissues: A Colon Biopsy (SURVEILLANCE BX) B Colon - Polyp (RECTUM POLYP) Procedures: HE Stain/4, Gross/Micro L4/2 Patient: Jovita Stiles [id number] (Continued) Specimen: [id number] Received: 05/26/22 (Continued) Signed (signatur e on file) Bertin Ramirez MD 05/27/22 1524 Specimen: [id number] Received: 05/26/22 Status: JORGE Matute Num: [id number] Spec Type: Surgical Subm Dr: Frederick Joe MD Tissues: A Colon Biopsy (SURVEILLANCE BX) B Colon - Polyp (RECTUM POLYP) Procedures: HE Stain/4, Gross/Micro L4/2 Patient: Jovita Stiles [id number] (Continued) Specimen: [id number] Received: 05/26/22 (Continued) Microscopic Description A. Two glass slides with H E stained material have been examined. The microscopic findings support the above pathologic diagnosis. B. Two glass slides with H E stained material have been examined. The microscopic findings support the above pathologic diagnosis. CPT Codes 73960?2 Specimen: [id number] Received: 05/26/225 Status: JORGE Matute Num: [id number] Spec Type: Surgical Subm Dr: Frederick Joe MD Tissues: A Colon Biopsy (SURVEILLANCE BX) B Colon - Polyp (RECTUM POLYP) Procedures: HE Stain/4, Gross/Micro L4/2 Patient: Jovita Stiles [id number] (Continued) Signed (signatur e on file) Bertin Ramirez MD 05/27/22 1524 [facility] COVID-19 Antigenon 2 COVID-19 Antigen Healthcare Worker?: [...] developed and its performance characteristic determined by [employer] and validated at [facility]. This test has not been [...] for SARS Antigen by MIKE PERFORMED BY: [place] [address] PATHOLOGIST TOLL TRANSMISSION WORKER KRISTIE BUENO M.D. [facility] Comment on above: Performed By: #### C OVID-19 ANAHI, SOFIANEG #### [address] Anahi Ag Negativeon 05-24-20 Anahi Ag Negative Negative Normal Negative [facility] Comment on above: Result Comment: This is a duplicate Anahi SARS Antigen (MIKE) result to be used for statistical tracking purpose only. PERFORMED BY: [place] [address] PATHOLOGIST TOLL TRANSMISSION WORKER KRISTIE BUENO M.D. Performed By: #### C MP, CBC #### [facility] [address] [place] [address] XR CSPINE 2_3 VIEWSon 2021 XR CSPINE [...] by: ESTHER ANDREWS Date: 2022-05-13 08:07 Normal [facility] Complete Blood Count with Au to Diffon 04-20-2022 Basophils (Bld) [#/Vol] 0.02 10*3/uL Normal 0.00-0.20 [facility] Comment on above: Performed By: #### C BCAD #### [facility] [address], [place] [id number] Basophils/100 WBC (Bld) 0.2 % Normal [facility] Comment on above: Performed By: #### C BCAD #### [facility] [address], [place] [id number] Eosinophils (Bld) [#/Vol] 0.07 10*3/uL Normal 0.02-0.50 [facility] Comment on above: Performed By: #### C BCAD #### [facility] [address], [place] [id number] Eosinophils/100 WBC (Bld) 0.8 % Normal [facility] Comment on above: Performed By: #### C BCAD #### [facility] [address], [place] [id number] Erythrocyte distribution width (RBC) [Ratio] 12.9 % Normal 11.0-15.0 [facility] Comment on above: Performed By: #### C BCAD #### [facility] [address], [place] [id number] Hematocrit (Bld) [Volume fraction] 39.7 % Normal 35.0-47.0 [facility] Comment on above: Performed By: #### C BCAD #### [facility] [address], [place] [id number] Hemoglobin (Bld) [Mass/Vol] 13.2 g/dL Normal 11.6-15.5 [facility] Comment on above: Performed By: #### C BCAD #### [facility] [address], [place] [id number] Lymphocytes (Bld) [#/Vol] 2.6 10*3/uL Normal 0.9-3.9 [facility] Comment on above: Performed By: #### C BCAD #### [facility] [address], [place] [id number] Lymphocytes/100 WBC (Bld) 30.4 % Normal [facility] Comment on above: Performed By: #### C BCAD #### [facility] [address], [place] [id number] MCH (RBC) [Entitic mass] 30.0 pg Normal 27.0-33.0 [facility] Comment on above: Performed By: #### C BCAD #### [facility] [address], [place] [id number] MCHC (RBC) [Mass/Vol] 33.2 g/dL Normal 32.0-36.0 [facility] Comment on above: Performed By: #### C BCAD #### [facility] [address], [place] [id number] MCV (RBC) [Entitic vol] 90 fL Normal 80-100 [facility] Comment on above: Performed By: #### C BCAD #### [facility] [address], [place] [id number] Monocytes (Bld) [#/Vol] 0.7 10*3/uL Normal 0.2-0.9 [facility] Comment on above: Performed By: #### C BCAD #### [facility] [address], [place] [id number] Monocytes/100 WBC (Bld) 8.3 % Normal [facility] Comment on above: Performed By: #### C BCAD #### [facility] [address], [place] [id number] Neutrophils (Bld) [#/Vol] 5.1 10*3/uL Normal 1.5-7.8 [facility] Comment on above: Performed By: #### C BCAD #### [facility] [address], [place] [id number] Neutrophils/100 WBC (Bld) 60.1 % Normal [facility] Comment on above: Performed By: #### C BCAD #### [facility] [address], [place] [id number] Platelet mean volume (Bld) [Entitic vol] 10.90 fL Normal 7.50-12.50 [facility] Comment on above: Performed By: #### C BCAD #### [facility] [address], [place] [id number] Platelets (Bld) [#/Vol] 272 10*3/uL Normal 140-400 [facility] Comment on above: Performed By: #### C BCAD #### [facility] [address], [place] [id number] RBC (Bld) [#/Vol] 4.40 10*6/uL Normal 3.90-5.20 [facility] [place] Comment on above: Performed By: #### C BCAD #### [facility] [address], [place] [id number] RDW-SD 42.6 fL Normal 37.0-50.0 [facility] Comment on above: Performed By: #### C BCAD #### [facility] [address], [place] [id number] WBC (Bld) [#/Vol] 8.6 10*3/uL Normal 3.8-11.0 [facility] Comment on above: Performed By: #### C BCAD #### [facility] [address], [place] [id number] Q - PT AND PTTon 04-20-2022 INR Coag (PPP) [Relative time] 1.0 {INR} Normal [facility] Comment on above: Order Comment: [facility] performed at: QPT, [facility], [address], [address] [facility], [place], [address], Bus Steward: Tavares Paulson MD [facility] Collection Date/Time: [facility] Results Received Date/Time: [facility] Reported Date/Time: Result Comment: Refe rence Range 0.9-1.1 Moderate-intensity Warfarin Therapy 2.0-3.0 Higher-intensity Warfarin Therapy 3.0-4.0 Performed By: #### 7 94F #### [facility] [address] [place] [address] PARTIAL THROMBOPLASTIN TIME, ACTIVATED 28 sec Normal 23-32 [facility] Comment on above: Order Comment: [facility] performed at: [facility], [address] [place] [address], [address] [place] [address], [phone], Bus Steward: Tavares Paulson MD [facility] Date/Time: [facility] Results Received Date/Time: [facility] Reported Date/Time: Result Comment: This test has not been validated for monitoring unfractionated heparin therapy. For testing that is validated for this type of therapy, please refer to the Heparin Anti-Xa assay (test code 66152). For additional information, please refer to http://education.NanoInk/faq/GBX032 (This link is being provided for informational/educational purposes only.) Performed By: #### 7 94F #### [facility] [address] [place] [address] PT Coag (PPP) [Time] 9.8 s Normal 9.0-11.5 [facility] Comment on above: Order Comment: [facility] performed at: [facility], [address] [place] [address], [address] [place] [address], [phone], Bus Steward: Tavares Paulson MD [facility] Date/Time: [facility] Results Received Date/Time: [facility] Reported Date/Time: Performed By: #### 7 94F #### [facility] [address] [place] [address] Q - FECAL GLOBIN BY IMMUNOCH EMISTRYon 04-04-2022 FECAL GLOBIN BY IMMUNOCHEMISTRY SEE NOTE Normal [facility] Comment on above: Order Comment: [facility] performed at: [facility], [address], [address] [facility], [place], [address], Bus Steward: Tavares Paulson MD [facility] Date/Time: [facility] Results Received Date/Time: [facility] Reported Date/Time: Result Comment: FECA L GLOBIN BY IMMUNOCHEMISTRY Micro Number: [id number] Test Status: Final Specimen Source: Insure (tm) fobt test card Specimen Quality: Adequate Fecal Globin: Not Detected Performed By: #### 1 [id number] #### [facility] [address] [place] [address] Comprehensive Metabolic Pane [facility] 02-24-2022 Albumin [Mass/Vol] 4.5 g/dL Normal 3.6-5.1 [facility] Comment on above: Performed By: #### C MP, LIPD #### [facility] [address], [place] [id number] Albumin/Globulin [Mass ratio] 1.8 {ratio} Normal 1.0-2.5 [facility] Comment on above: Performed By: #### C MP, LIPD #### [facility] [address], [place] [id number] ALP [Catalytic activity/Vol] 96 U/L Normal 35-119 [facility] Comment on above: Performed By: #### C MP, LIPD #### [facility] [address], [place] [id number] ALT [Catalytic activity/Vol] 10 U/L Normal 6-33 [facility] Comment on above: Result Comment: 10/20 Female reference range changed. Performed By: #### C MP, LIPD #### [facility] [address] [facility] [place] [id number] Anion gap [Moles/Vol] 15 mmol/L Normal 12-20 [facility] Comment on above: Result Comment: Effe ctive 11/25/2019 reference range changed. Performed By: #### C MP, LIPD #### [facility] [address] [place] [id number] AST [Catalytic activity/Vol] 17 U/L Normal 9-34 [place] [employer]pen[employer] Operator Comment on above: Performed By: #### C CONSTANZA LIPD #### [facility] [address], [place] [id number] BUN/CREA 30 Ratio High 6-22 [facility] Comment on above: Performed By: #### C CONSTANZA LIPD #### [facility] [address], [place] [id number] Calcium [Mass/Vol] 9.6 mg/dL Normal 8.6-10.2 [facility] Comment on above: Performed By: #### C CONSTANZA LIPD #### [facility] [address], [place] [id number] Chloride [Moles/Vol] 101 mmol/L Normal 98-107 [facility] Comment on above: Performed By: #### C CONSTANZA LIPD #### [facility] [address], [place] [id number] CO2 [Moles/Vol] 28 mmol/L Normal 20-31 [facility] Comment on above: Performed By: #### C CONSTANZA LIPD #### [facility] [address], [place] [id number] Creatinine [Mass/Vol] 0.6 mg/dL Normal 0.6-1.4 [facility] Comment on above: Performed By: #### C CONSTANZA LIPD #### [facility] [address], [place] [id number] eGFRAA 126 mL/min/1.73m2 Normal >60 [facility] Comment on above: Performed By: #### C CONSTANZA LIPD #### [facility] [address], [place] [id number] eGFRNAA 104 mL/min/1.73m2 Normal >60 [facility] Comment on above: Performed By: #### C CONSTANZA LIPD #### [facility] [address], [place] [id number] Globulin (S) [Mass/Vol] 2.5 g/dL Normal 1.9-3.7 [facility] Comment on above: Performed By: #### C CONSTANZA LIPToña #### [facility] [address], [place] [id number] Glucose [Mass/Vol] 99 mg/dL Normal 65-99 [facility] Drill Sharpener Operator Comment on above: Result Comment: For FASTING Glucose --- ADA reference ranges: Normal 65-99 mg/dl Prediabetes 100-125 Diabetes >/= 126 Performed By: #### C MP, LIPD #### [facility] [address], [place] [id number] Potassium [Moles/Vol] 3.3 mmol/L Low 3.5-5.5 [facility] Specialist Comment on above: Performed By: #### C MP, LIPD #### [facility] [address], [place] [id number] Protein [Mass/Vol] 7.0 g/dL Normal 6.1-8.1 [facility] Drill Sharpener Operator Comment on above: Performed By: #### C MP, LIPD #### [facility] [address], [place] [id number] Sodium [Moles/Vol] 140 mmol/L Normal 135-146 [facility] Drill Sharpener Operator Comment on above: Performed By: #### C MP, LIPD #### [facility] [address], [place] [id number] TBIL <0.3 Normal [facility] Comment on above: Performed By: #### C MP, LIPD #### [facility] [address], [place] [id number] Urea nitrogen [Mass/Vol] 17 mg/dL Normal 7-25 [facility] Comment on above: Performed By: #### C MP, LIPD #### [facility] [address], [place] [id number] Lipid [facility] 02-24-2022 Cholesterol [Mass/Vol] 166 mg/dL Normal 125-200 No [facility] Specialist Comment on above: Result Comment: Low risk < 200mg/dL Borderline risk 201-239 mg/dl High risk > or equal to 240 Performed By: #### C MP, LIPD #### [facility] [address] [place], [place] [id number] Cholesterol in HDL [Mass/Vol] 49 mg/dL Normal >40 [facility] Drill Sharpener Operator Comment on above: Result Comment: High Cardiovascular Risk HDL <40 mg/dL Low Cardiovascular Risk HDL > or equal to 60 mg/dl Performed By: #### C MP, LIPD #### [facility] [address] [place], [place] [id number] Cholesterol in LDL [Mass/Vol] 71 mg/dL Normal [facility] Specialist Comment on above: Result Comment: LDL ATP III CLASSIFICATION LDL less than 100 mg/dl Optimal LDL 100-129 mg/dl Near or above optimal LDL 130-159 Borderline high LDL 160-189 High LDL greater than 189 mg/dl Very High Performed By: #### C MP, LIPD #### [facility] [address] [place], [place] [id number] Cholesterol in VLDL [Mass/Vol] 46 mg/dL Normal [facility] Drill Sharpener Operator Comment on above: Performed By: #### C MP, LIPD #### [facility] [address] [place], [place] [id number] Cholesterol.total/Chol esterol in HDL [Mass ratio] 3 {ratio} Normal [facility] Specialist Comment on above: Performed By: #### C MP, LIPD #### [facility] [address] [place], [place] [id number] Triglyceride [Mass/Vol] 230 mg/dL High 30-150 [facility] Drill Sharpener Operator Comment on above: Result Comment: TRIG ATPIII CLASSIFICATIONS TRIG less than 150 mg/dl Normal TRIG 150-199 mg/dl Borderline High TRIG 200-500 mg/dl High TRIG greather than 500 mg/dl Very High Performed By: #### C MP, LIPD #### [facility] [address] [place], [place] [id number] XR wrist LT 2Von 11-02-2021 XR wrist LT 2V [facility] [place] [address] XRay Report Signed Patient: Jovita Stiles MR#: [id number] [birth year] : 1940 Acct:[id number] Age/Sex: 80 / F ADM Date: 11/02/21 Loc: [facility] Room: Type: [facility] Attending Dr: Camron Davis MD Ordering Provider: [...] Susan Felder M.D.11/02/2021 1:20 PM Dictation Location: [place] [address] Transcribed By: [facility] 11/02/21 1320 Dictated By: Susan Felder MD 11/02/21 1318 Signed By: 11/02/21 1320 [facility] XR wrist LT 2Von 09-07-2021 XR wrist LT 2V [facility] [address] [place] [address] [place] [address] XRay Report Signed Patient: Jovita Stiles MR#: [id number] [birth year] : 1940 Acct:[id number] Age/Sex: 80 / F ADM Date: 09/07/21 Loc: [facility] Room: Type: [facility] Attending Dr: Camron Davis MD Ordering Provider: [...] Kain Joseph M.D.09/07/2021 12:05 PM Dictation Location: [place] [address] Transcribed By: [facility] 09/07/21 1205 Dictated By: Kain Joseph DO 09/07/21 1204 Signed By: 09/07/21 1205 [facility] XR wrist LT 2V [facility] [employer] Other XR wrist LT 2V [facility] [employer] Other XR wrist LT 2V [address] [place] [address] [employer] Other XR wrist LT 2[place] [address] No rt [employer] Other XR wrist LT 2V XRay Report [employer] Other XR wrist LT 2V Signed [employer] Other XR wrist LT 2V Patient: Jovita Stiles MR#: [id number] [employer] Other XR wrist LT 2V 22 [employer] Other XR wrist LT 2V : 1940 Acct:[id number] [employer] Other XR wrist LT 2V Age/Sex: 80 / F ADM Date: 09/07/21 [employer] Other XR wrist LT 2V Loc: [place] Room: Type: [facility] [employer] Other XR wrist LT 2V Attending Dr: Camron Davis MD [employer] Other XR wrist LT 2V Ordering Provider: Camron Davis MD [employer] Other XR wrist LT 2V Date of Service: 09/07/21 [employer] Other XR wrist LT 2V XR/XR wrist LT 2V: Other intraarticular fracture of lower end of left [employer] Other XR wrist LT 2V radius, s [employer] Other XR wrist LT 2V Copies to: Camron Davis MD [employer] Other XR wrist LT 2V 2 viewsLEFT wrist plain film [employer] Other XR wrist LT 2V COMPARISON:08/04/21 N [facility] [employer] Other XR wrist LT 2V HISTORY:Status post LEFT distal radius ORIF. [employer] Other XR wrist LT 2V No hardware failure. Adequate bony alignment distal radius fracture. Redemonstration of ulnar [place] [employer] Other XR wrist LT 2V styloid fracture. Nor [employer] Other XR wrist LT 2V XR/XR wrist LT 2V [employer] Other XR wrist LT 2V IMPRESSION:Stable findings [employer] Other XR wrist LT 2V Impression dictated by: Kain Joseph M.D.09/07/2021 12:05 PM [employer] Other XR wrist LT 2V Dictation Location: [facility] [place] [address] [employer] Other XR wrist LT 2V Transcribed By: PWS 09/07/21 1205 [employer] Other XR wrist LT 2V Dictated By: Kain Joseph DO 09/07/21 1204 [employer] Other XR wrist LT 2V Signed By: [employer] Other XR wrist LT 2V 09/07/21 1205 [email or web address] Other XR wrist LT 2Von 08-04-2021 XR wrist LT 2V [facility] [address] [place] [address] [place] [address] XRay Report Signed Patient: Jovita Stiles MR#: [id number] [birth year] : 1940 Acct:[id number] Age/Sex: 80 / F ADM Date: 08/04/21 Loc: [facility] Room: Type: [facility] Attending Dr: Camron Davis MD Ordering Provider: [...] Ana Nicole M.D.08/04/2021 3:13 PM Dictation Location: [place] [address] Transcribed By: [facility] 08/04/211512 Dictated By: Ana Nicole II, MD 08/04/211511 Signed By: 08/04/211512 [facility] XR wrist LT 2Von 07-15-2021 XR wrist LT 2V [facility] [place] [address] XRay Report Signed Patient: Jovita Stiles MR#: [id number] [birth year] : 1940 Acct:[id number] Age/Sex: 80 / F ADM Date: 07/15/21 Loc: [facility] Room: Type: [facility] Attending Dr: Jeanette MOSCOSO Ordering Provider: CRISTIAN [...] II, MD 07/15/21 1615 Signed By: 07/15/21 161 [facility] XR wrist LT 2Von 07-08-2021 XR wrist LT 2V [facility] [place] [address] XRay Report Signed Patient: Jovita Stiles MR#: [id number] [birth year] : 1940 Acct:[id number] Age/Sex: 80 / F ADM Date: 07/08/21 Loc: [place] Room: Type: [facility] Attending Dr: Camron Davis MD Ordering Provider: [...] MD 07/08/21 1544 Signed By: 07/08/21 1545 Normal [facility] COVID-19 FRon 07-07-2021 SARS-CoV-2 (COVID-19) RNA TYLER+probe Ql (Unsp spec) Negative Normal Negative [facility] Comment on above: Order Comment: 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 This test has not been [...] is terminated or revoked sooner. PERFORMED BY: [place] [address] PATHOLOGIST TOLL TRANSMISSION WORKER KRISTIE BUENO M.D. Performed By: #### C OVID 19 [facility] [place] [place] #### [address] Complete Blood Count Auto Di ffon 07-07-2021 Basophils (Bld) [#/Vol] 0.0 10*3/uL Normal 0.0-0.2 [facility] Comment on above: Result Comment: PERF ORMED BY: [place] [address] PATHOLOGIST TOLL TRANSMISSION WORKER KRISTIE BUENO M.D. Performed By: #### C MP, CBC #### [address] Basophils/100 WBC (Bld) 0.2 % Normal . [facility] Comment on above: Performed By: #### C MP, CBC #### [facility] [address] [place] [address] [place] Eosinophils (Bld) [#/Vol] 0.0 10*3/uL Normal 0.0-0.45 [facility] Comment on above: Performed By: #### C MP, CBC #### [facility] [address] [place] [address] [place] Eosinophils/100 WBC (Bld) 0.4 % Normal . [facility] Comment on above: Performed By: #### C MP, CBC #### [facility] [address] Erythrocyte distribution width (RBC) [Ratio] 13.1 % Normal 11.9-15.3 [facility] Comment on above: Performed By: #### C MP, CBC #### [facility] [address] Hematocrit (Bld) [Volume fraction] 37.7 % Normal 34.0-46.4 [facility] Comment on above: Performed By: #### C MP, CBC #### [facility] [address] [place] [address] [place] Hemoglobin (Bld) [Mass/Vol] 13.0 g/dL Normal 11.8-15.4 [facility] Comment on above: Performed By: #### C MP, CBC #### [facility] [address] [place] [address] [place] Lymphocytes (Bld) [#/Vol] 2.1 10*3/uL Normal 1.00-4.8 [facility] Comment on above: Performed By: #### C MP, CBC #### [facility] [address] [place] [address] [place] Lymphocytes/100 WBC (Bld) 25.0 % Normal . [facility] Comment on above: Performed By: #### C MP, CBC #### [facility] [address] [place] [address] [place] MCH (RBC) [Entitic mass] 31.2 pg Normal 24.7-34.3 [facility] Comment on above: Performed By: #### C MP, CBC #### [facility] [address] MCV (RBC) [Entitic vol] 90.5 fL Normal 80-100 [facility] Comment on above: Performed By: #### C MP, CBC #### [facility] [address] Mean Corpuscular HGB Conc 34.5 g/dL Normal 32.0-35.0 [facility] Comment on above: Performed By: #### C MP, CBC #### [facility] [address] [place] [address] [place] Monocytes (Bld) [#/Vol] 0.7 10*3/uL Normal 0.0-0.8 [facility] Comment on above: Performed By: #### C MP, CBC #### [facility] [address] Monocytes/100 WBC (Bld) 7.9 % Normal . [facility] Comment on above: Performed By: #### C MP, CBC #### [facility] [address] [place] [address] [place] Neutrophils (Bld) [#/Vol] 5.6 10*3/uL Normal 1.8-7.7 [facility] Comment on above: Performed By: #### C MP, CBC #### [facility] [address] Neutrophils/100 WBC (Bld) 66.5 % Normal . [facility] Comment on above: Performed By: #### C MP, CBC #### [facility] [address] [place] [address] [place] Nucleated RBC/100 WBC (Bld) [Ratio] 0.2 % Normal 0-0.5 [facility] Comment on above: Performed By: #### C MP, CBC #### [facility] [address] Platelet mean volume (Bld) [Entitic vol] 8.8 fL Normal 6.3-10.7 [facility] Comment on above: Performed By: #### C MP, CBC #### [address] Platelets (Bld) [#/Vol] 242 10*3/uL Normal 150-450 [facility] Comment on above: Performed By: #### C MP, CBC #### [address] RBC (Bld) [#/Vol] 4.16 10*6/uL Normal 3.60-5.00 [facility] Comment on above: Performed By: #### C MP, CBC #### [address] WBC (Bld) [#/Vol] 8.4 10*3/uL Normal 4.5-11.0 [facility] Comment on above: Performed By: #### C MP, CBC #### [address] Comprehensive Metabolic Pane rubio 07-07-2021 Albumin [Mass/Vol] 3.9 g/dL Normal 3.2-5.5 [facility] Comment on above: Performed By: #### C MP, CBC #### [address] Albumin/Globulin [Mass ratio] 1.3 {ratio} Normal [facility] Comment on above: Performed By: #### C MP, CBC #### [address] ALP [Catalytic activity/Vol] 89 U/L Normal 32-92 [facility] Comment on above: Result Comment: PERF ORMED BY: [place] [address] PATHOLOGIST TOLL TRANSMISSION WORKER KRISTIE BUENO M.D. Performed By: #### C MP, CBC #### [address] ALT [Catalytic activity/Vol] 16 U/L Normal 10-60 [facility] Comment on above: Performed By: #### C MP, CBC #### [place] [address] [place] AST [Catalytic activity/Vol] 20 U/L Normal 10-42 [facility] Comment on above: Performed By: #### C MP, CBC #### [facility] [address] Bilirubin [Mass/Vol] 0.8 mg/dL Normal 0.3-1.2 [facility] Comment on above: Performed By: #### C MP, CBC #### [facility] [address] Calcium [Mass/Vol] 9.4 mg/dL Normal 8.2-10.2 [facility] Comment on above: Performed By: #### C MP, CBC #### [facility] [address] Chloride [Moles/Vol] 96 mmol/L Normal 95-114 [facility] Comment on above: Performed By: #### C MP, CBC #### [address] CO2 [Moles/Vol] 28.0 mmol/L Normal 22.0-30.0 [facility] Comment on above: Performed By: #### C MP, CBC #### [address] Creatinine [Mass/Vol] 0.68 mg/dL Normal 0.44-1.03 [facility] Comment on above: Performed By: #### C MP, CBC #### [address] Estimated GFR ( [place] > 60 [facility] Comment on above: Result Comment: GFR estimated reference range: According to KDOQI guidelines, <60 ml/min/1.73m2 is sufficient to diagnose a patient with chronic kidney disease. Performed By: #### C MP, CBC #### [address] Estimated GFR (Non- Am > 60 Normal [facility] Comment on above: Performed By: #### C MP, CBC #### [place] [address] [place] Globulin (S) [Mass/Vol] 3.0 g/dL Normal [facility] Comment on above: Performed By: #### C MP, CBC #### [facility] [address] Glucose [Mass/Vol] 105 mg/dL High 70-100 [facility] Comment on above: Result Comment: [place] Glucose Reference Range is dependent on time and content of last meal. Glucose of more than 200 mg/dL in a nonstressed, ambulatory subject supports the diagnosis of Diabetes Mellitus. ADA recommended reference range Performed By: #### C MP, CBC #### [facility] [address] Potassium [Moles/Vol] 4.1 mmol/L Normal 3.5-5.1 [facility] Comment on above: Performed By: #### C MP, CBC #### [facility] [address] Protein [Mass/Vol] 6.9 g/dL Normal 6.1-7.9 [facility] Comment on above: Performed By: #### C MP, CBC #### [facility] [address] Sodium [Moles/Vol] 135 mmol/L Low 136-146 [facility] Comment on above: Performed By: #### C MP, CBC #### [facility] [address] Urea nitrogen [Mass/Vol] 17 mg/dL Normal 9-23 [facility] Comment on above: Performed By: #### C MP, CBC #### [facility] [address] [place] [address] [place] ECG 12 lead ECGon 07-07-2021 ECG 12 lead ECG [facility] [address] [place] [address] [place] [address] Electrocardiograph Report Signed Patient: Jovita Stiles MR#: [id number] [birth year] : 1940 Acct:[id number] Age/Sex: 80 / F ADM Date: 07/07/21 Loc: [place] Room: Type: REG CLI Attending Dr: Camron Davis MD Ordering Provider: [...] NERI Dictated By: Wanda Varghese MD 07/07/21 9982 Signed By: 07/07/21 4925 [facility] XR WRIST LT MIN 3 Von 2020 [...] as clinically indicated. Electronically authenticated by: CHUYITA MARR Date: 2021-06-30 04:38 Normal [facility] XR WRIST LT MIN 3 V EXAM: [...] as clinically indicated. Electronically authenticated by: CHUYITA MARR Date: 2021-06-30 03:08 Normal [facility] Vital Signs Date Time Vital Sign Value Performing Clinician Facility 03-06-2025 13:03-0400 Body height 160 cm Jeanette Tijerina MD Work Phone: [facility] 03-06-2025 13:03-0400 Body mass index (BMI) [Ratio] 24.52 kg/m2 Jeanette Tijerina MD Work Phone: [facility] 03-06-2025 13:03-0400 Body weight 62.78 kg Jeanette Tijerina MD Work Phone: [facility] 03-06-2025 13:03-0400 Diastolic blood pressure 72 mm[Hg] Jeanette Tijerina MD Work Phone: [facility] 03-06-2025 13:03-0400 Heart rate 51 /min Jeanette Tijerina MD Work Phone: [facility] 03-06-2025 13:03-0400 SaO2% (BldA) [Mass fraction] 98 % Jeanette Tijerina MD Work Phone: [facility] 03-06-2025 13:03-0400 Systolic blood pressure 128 mm[Hg] Jeanette Tijerina MD Work Phone: [facility] 12-26-2024 13:33-0500 Body height 157.48 cm [facility] 12-26-2024 13:33-0500 Body mass index (BMI) [Ratio] 24.5 kg/m2 [facility] 12-26-2024 13:33-0500 Body weight 60.7 kg [facility] 11-05-2024 14:32-0500 Body height 160 cm Jeanette Tijerina MD Work Phone: [facility] 11-05-2024 14:32-0500 Body mass index (BMI) [Ratio] 25.08 kg/m2 Jeanette Tijerina MD Work Phone: [facility] 11-05-2024 14:32-0500 Body weight 64.23 kg Jeanette Tijerina MD Work Phone: [facility] 11-05-2024 14:32-0500 Diastolic blood pressure 80 mm[Hg] Jeanette Tijerina MD Work Phone: [facility] 11-05-2024 14:32-0500 Heart rate 55 /min Jeanette Tijerina MD Work Phone: [facility] 11-05-2024 14:32-0500 SaO2% (BldA) [Mass fraction] 98 % Jeanette Tijerina MD Work Phone: [facility] 11-05-2024 14:32-0500 Systolic blood pressure 128 mm[Hg] Jeanette Tijerina MD Work Phone: [facility] 09-24-2024 12:52-0500 Body mass index (BMI) [Ratio] 24.5 kg/m2 [facility] 09-24-2024 12:52-0500 Diastolic blood pressure 80 mm[Hg] [facility] 09-24-2024 12:52-0500 Heart rate 59 /min [facility] 09-24-2024 12:52-0500 Systolic blood pressure 156 mm[Hg] [facility] 09-24-2024 12:48-0500 Body height 157.48 cm [facility] 09-24-2024 12:48-0500 Body weight 60.78 kg [facility] 09-05-2024 13:52-0400 Body height 160 cm Jeanette Tijerina MD Work Phone: [facility] 09-05-2024 13:52-0400 Body mass index (BMI) [Ratio] 24.27 kg/m2 Jeanette Tijerina MD Work Phone: [facility] 09-05-2024 13:52-0400 Body weight 62.14 kg Jeanette Tijerina MD Work Phone: [facility] 09-05-2024 13:52-0400 Diastolic blood pressure 82 mm[Hg] Jeanette Tijerina MD Work Phone: [facility] 09-05-2024 13:52-0400 Heart rate 54 /min Jeanette Tijerina MD Work Phone: [facility] 09-05-2024 13:52-0400 SaO2% (BldA) [Mass fraction] 93 % Jeanette Tijerina MD Work Phone: [facility] 09-05-2024 13:52-0400 Systolic blood pressure 130 mm[Hg] Jeanette Tijerina MD Work Phone: [facility] 09-21-2023 14:15-0400 Body height 157.48 cm Fredreick Heath Other [employer] Other 09-21-2023 14:15-0400 Body mass index (BMI) [Ratio] 23.77 kg/m2 [employer] Other [employer] Other 09-21-2023 14:15-0400 Body weight 58.97 kg Frederick [employer] Other [employer] Other 09-21-2023 14:15-0400 Diastolic blood pressure 70 mm[Hg] Frederick Heath Other [employer] Other 09-21-2023 14:15-0400 Systolic blood pressure 144 mm[Hg] Frederick Heath Other [employer] Other 10-18-2022 14:45-0500 Body height 157.48 cm Frederick [employer] Other [employer] Other 10-18-2022 14:45-0500 Body mass index (BMI) [Ratio] 24.69 kg/m2 [employer] Other [employer] Other 10-18-2022 14:45-0500 Body weight 61.24 kg Frederick Joe Other [employer] Other 10-18-2022 14:45-0500 Diastolic blood pressure 91 mm[Hg] Frederick Joe Other [employer] Other 10-18-2022 14:45-0500 Systolic blood pressure 158 mm[Hg] Frederick Joe Other [employer] Other 07-19-2022 15:15-0400 Body height 157.48 cm Frederick Joe Other [employer] Other 07-19-2022 15:15-0400 Body mass index (BMI) [Ratio] 24.87 kg/m2 Frederick Joe Other [employer] Other 07-19-2022 15:15-0400 Body weight 61.69 kg Frederick Joe Other [employer] Other 05-11-2022 11:10-0400 Body height 157.48 cm Alexandria Fisher Other [employer] Other 05-11-2022 11:10-0400 Body mass index (BMI) [Ratio] 25.2 kg/m2 Alexandria Fisher Other [employer] Other 05-11-2022 11:10-0400 Body temperature 98.2 [degF] Alexandria Fisher Other [employer] Other 05-11-2022 11:10-0400 Body weight 62.51 kg Alexandria Fisher Other [employer] Other 05-11-2022 11:10-0400 Diastolic blood pressure 70 mm[Hg] Alexandria Fisher Other [employer] Other 05-11-2022 11:10-0400 Respiratory rate 18 /min Alexandria Fisher Other [employer] Other 05-11-2022 11:10-0400 SaO2% (BldA) [Mass fraction] 98 % Alexandria Fisher Other [employer] Other 05-11-2022 11:10-0400 Systolic blood pressure 170 mm[Hg] Alexandria Fisher Other [employer] Other 04-28-2022 14:30-0400 Body height 157.48 cm Frederick Heath Other [employer] Other 04-28-2022 14:30-0400 Body mass index (BMI) [Ratio] 25.42 kg/m2 Frederick Heath Other [employer] Other 04-28-2022 14:30-0400 Body weight 63.05 kg Frederick Jayack Other [employer] Other 11-02-2021 11:15-0500 Body height 157.48 cm Jeanette Brandt Other [employer] Other 11-02-2021 11:15-0500 Body mass index (BMI) [Ratio] 26.15 kg/m2 Jeanette Brandt Other [employer] Other 11-02-2021 11:15-0500 Body weight 64.86 kg Jeanette Brandt Other [employer] Other 09-07-2021 10:45-0400 Body height 157.48 cm Camron Davis Other [employer] Other 09-07-2021 10:45-0400 Body mass index (BMI) [Ratio] 25.97 kg/m2 Camron Davis Other [employer] Other 09-07-2021 10:45-0400 Body weight 64.41 kg Camron Davis Other [employer] Other Encounters Encounter Date Encounter Type Care Provider Facility Start: 03-22-2025 End: 03-22-2025 Refill Jeanette Tijerina MD Work Phone: [facility] Comment on above: Essential (primary) hypertension (CMS/HCC) Start: 03-06-2025 End: 03-06-2025 Bamboo flowsheet Jeanette Tijerina MD Work Phone: [facility] Start: 03-06-2025 End: 03-06-2025 Bamboo flowsheet Jeanette Tijerina MD Work Phone: [facility] Start: 03-06-2025 End: 03-06-2025 Patient encounter status Jeanette Tijerina MD Work Phone: [facility] Work Phone: Start: 03-06-2025 End: 03-06-2025 Periodic preventive med est patient 65yrs& older Jeanette Tijerina MD Work Phone: [facility] Comment on above: Wellness examination (Primary Dx); Essential (primary) hypertension (CMS/HCC); Ulcerative colitis with complication, unspecified location (CMS/HCC); Localized osteoporosis without current pathological fracture (CMS/HCC) Start: 03-06-2025 End: 03-06-2025 ambulatory JEANETTE TIJERINA Not Available Start: 02-04-2025 End: 02-04-2025 ambulatory NENA ASCENCIO Not Available Start: 12-26-2024 End: 12-26-2024 ambulatory [facility] Work Phone: Start: 12-26-2024 End: 12-26-2024 Patient encounter procedure [facility] Work Phone: Start: 12-24-2024 End: 12-24-2024 ambulatory JEANETTE TIJERINA Not Available Start: 11-05-2024 End: 11-05-2024 Office outpatient visit 10 minutes Jeanette Tijerina MD Work Phone: [facility] Comment on above: Mild atherosclerosis of carotid artery, unspecified laterality (Primary Dx) Start: 11-05-2024 End: 11-05-2024 ambulatory JEANETTE TIJERINA Not Available Start: 11-05-2024 End: 11-05-2024 Bamboo flowsgilma Tijerina MD Work Phone: [facility] Start: 11-05-2024 End: 11-05-2024 Bamboo flowsgilma Tijerina MD Work Phone: [facility] Start: 09-24-2024 End: 09-24-2024 ambulatory [facility] Work Phone: Start: 09-24-2024 End: 09-24-2024 Patient encounter procedure [facility] Phys[facility] Work Phone: Start: 09-21-2024 End: 09-23-2024 Refill Jeanette Tijerina MD Work Phone: [facility] Comment on above: Essential (primary) hypertension (CMS/HCC) Start: 09-05-2024 End: 09-05-2024 Bamboo flowsgilma Tijerina MD Work Phone: [facility] Start: 09-05-2024 End: 09-05-2024 Bamboo flowsgilma Tijerina MD Work Phone: [facility] Start: 09-05-2024 End: 09-05-2024 Office outpatient visit 15 minutes Jeanette Tijerina MD Work Phone: [facility] Comment on above: Essential (primary) hypertension (CMS/HCC) (Primary Dx); Encounter for immunization Start: 09-05-2024 End: 09-05-2024 ambulatory JEANETTE TIJERINA Not Available Start: 09-21-2023 End: 09-21-2023 ambulatory Frederick Joe Other [employer] Other Start: 09-21-2023 Office outpatient vi sit 15 minutes Frederick Joe [facility] Start: 10-18-2022 End: 10-18-2022 ambulatory Frederick Joe Other [employer] Other Start: 10-18-2022 Office outpatient vi sit 15 minutes Frederick Joe [facility] Start: 07-19-2022 End: 07-19-2022 ambulatory Frederick Joe Other [employer] Other Start: 07-19-2022 Office outpatient vi sit 15 minutes Frederick Joe [facility] Start: 05-24-2022 End: 05-24-2022 ambulatory Frederick Joe Other [employer] Other Start: 05-24-2022 Telephone encounter Frederick guevara [facility] Start: 05-13-2022 End: 05-13-2022 ambulatory KRISTIAN PEREZ Facility:[facility] Start: 05-11-2022 End: 05-11-2022 ambulatory Alexandria Fisher Other [employer] Other Start: 05-11-2022 Office outpatient vi sit 15 minutes Alexandria Fisher [facility] Start: 04-28-2022 End: 04-28-2022 ambulatory Frederick Joe Other [employer] Other Start: 04-28-2022 Office outpatient ne w 45 minutes Frederick Joe [facility] Start: 11-02-2021 End: 11-02-2021 ambulatory Jeanette Brandt Other [employer] Other Start: 11-02-2021 Office outpatient vi sit 15 minutes Jeanette Brandt [facility] Start: 09-07-2021 End: 09-07-2021 ambulatory Camron Davis Other [employer] Other Start: 09-07-2021 Postop follow up vis it related to original px Camron Davis [facility] Start: 07-06-2021 ambulatory WANDA CASTILLO Facility:[facility] Start: 06-30-2021 End: 06-30-[address] ANA SCHAEFER Facility: Plan of Treatment Date Care Activity Detail Author Start: 03-06-2026 Medicare Annual Well ness (AWV) Medicare Annual Wellness (AWV) [facility] Start: 09-05-2025 End: 09-05-2025 Patient encounter procedure 09/05/2025 1:00 PM EDT Office Visit [facility] [address] [place] [phone] Jeanette Tijerina MD [address] [place], [place] [id number] [facility] Start: 03-06-2025 End: 03-06-2026 CBC panel - Blood by Automated count CBC Lab Routine Essential (primary) hypertension (CMS/HCC) Expected: 03/06/2025 (Approximate), Expires: 03/06/2026 [facility] Comment on above: Expected: 03/06/2025 (Approximate), Expires: 03/06/2026 Start: 03-06-2025 End: 03-06-2026 Comprehensive metabolic 2000 panel - Serum or Plasma Comprehensive metabolic panel Lab Routine Essential (primary) hypertension (CMS/HCC) Expected: 03/06/2025 (Approximate), Expires: 03/06/2026 [facility] Work Phone: Comment on above: Expected: 03/06/2025 (Approximate), Expires: 03/06/2026 Start: 03-06-2025 End: 03-06-2025 Patient encounter procedure [facility] Comment on above: Arrived Start: 03-05-2025 Medicare Annual Well ness (AWV) Medicare Annual Wellness (AWV) [facility] Start: 11-05-2024 End: 11-05-2024 Patient encounter procedure 11/05/2024 2:30 PM EST Office Visit [facility] [address] [facility] [place] [phone] Jeanette Tijerina MD [address] [place] [address] Arrived [facility] Comment on above: Arrived Start: 09-05-2024 End: 09-05-2024 Patient encounter procedure 09/05/2024 2:00 PM EDT Office Visit [facility] [address] [place] [phone] Jeanette Tijerina MD [address] [place] [address] Arrived [facility] Comment on above: Arrived Start: 07-21-2024 Influenza vaccination Influenza Vacc ine (#1) [facility] Start: 2006 Pneumococcal Vaccine : 65+ Years (1 of 1 - PCV) Pneumococcal Vaccine: 65+ Years (1 of 1 - PCV) [facility] Immunizations Immunization Date Immunization Notes Care Provider Fa cility 09-05-2024 influenza, high dose seasonal, preservative-free Jeanette Tijerina MD Work Phone: [facility] 09-05-2024 Pneumococcal Conjuga te PCV 20 Jeanette Tijerina MD Work Phone: [facility] 08-29-2023 influenza, high dose seasonal, preservative-free Jeanette Tijerina MD Work Phone: [facility] 08-29-2023 influenza virus vaccine, unspecified formulation Jeanette Tijerina MD Work Phone: [facility] 08-26-2022 influenza, high dose seasonal, preservative-free Jeanette Tijerina MD Work Phone: [facility] 08-26-2022 Influenza, High-dose Seasonal, Quadrivalent, Preservative Free Jeanette Tijerina MD Work Phone: [facility] 09-22-2021 COVID-19 mRNA, Comirnaty (Pfizer) [facility] 08-17-2021 influenza, high dose seasonal, preservative-free Jeanette Tijerina MD Work Phone: [facility] 08-17-2021 Influenza, High-dose Seasonal, Quadrivalent, Preservative Free Jeanette Tijerina MD Work Phone: [facility] 03-12-2021 Moderna SARS-CoV-2 Vaccination Jeanette Tijerina MD Work Phone: [facility] 01-19-2021 COVID-19 mRNA, Comirnaty (Pfizer) [facility] 09-01-2020 Influenza, injectabl e, Madin Gris Canine Kidney, preservative free, quadrivalent Jeanette Tijerina MD Work Phone: [facility] 02-10-2020 Pfizer Purple Cap SARS-CoV-2 Vaccination Jeanette Tijerina MD Work Phone: [facility] 09-24-2019 influenza, high dose seasonal, preservative-free Jeanette Tijerina MD Work Phone: [facility] 09-07-2018 Influenza, injectabl e, Madin Gris Canine Kidney, preservative free, quadrivalent Jeanette Tijerina MD Work Phone: [facility] 09-11-2017 influenza, seasonal, injectable, preservative free Jeanette Tijerina MD Work Phone: [facility] Work Phone: Payers Date Payer Category Payer Medicare (Managed Care) ROSY GOMEZ [id number] 1958 Medicare [id number] 1940 Unknown [id number] .[id number] 1941 Unknown [id number] .2.593 1941 Unknown [id number] .2.593 1941 Unknown [id number] [id number] .2.1259 1941 Unknown [id number] [id number] .2.1259 1941 Unknown [id number] [id number] .2.1259 1941 Unknown [id number] [id number] .2.1259 1941 Unknown [id number] .2.1259 1941 Unknown [id number] .2.1259 Blue Cross Blue Shield [id number] Self-pay Self Pay [id number] Social History Date Type Detail Facility Start: 03-05-2024 End: 03-06-2025 Sex Assigned At [facility] Work Phone: Start: 05-26-2022 End: 08-29-2023 Tobacco smoking status NHIS Never smoked tobacco [facility] Start: 08-29-2023 Tobacco use and exposure Smokeless tobacco non-user [facility] Start: 03-05-2024 End: 03-06-2025 Alcoholic beverage intake Ex-drinker (finding) [facility] Start: 03-05-2024 End: 03-06-2025 History of Social function [facility] Work Phone: Start: 08-28-2023 Alcohol Comment Caffeine intak e: 1-2 cups per day coffee [facility] Start: 1940 Sex assigned at Not on file [facility] Start: 1940 Sex Assigned At Female F [facility] Start: 12-26-2024 Sex Female (finding) [facility] Medical Equipment Procedure Code Equipment Code Equipment Origin al Text Equipment Identifier Dates ORIF, fracture, wrist Orthopaedic fixation plate, non-bioabsorbable, sterile ()[id number] FDA Start: 07-08-2021 ORIF, fracture, wrist Orthopaedic bone screw, non-bioabsorbable, non-sterile ()[id number] FDA Start: 07-08-2021 ORIF, fracture, wrist Orthopaedic bone screw, non-bioabsorbable, non-sterile ()[id number] FDA Start: 07-08-2021 ORIF, fracture, wrist Orthopaedic bone screw, non-bioabsorbable, non-sterile ()[id number] FDA Start: 07-08-2021 ORIF, fracture, wrist Orthopaedic bone screw, non-bioabsorbable, non-sterile ()[id number] FDA Start: 07-08-2021 ORIF, fracture, wrist Orthopaedic bone screw, non-bioabsorbable, non-sterile ()[id number] FDA Start: 07-08-2021 Functional Status Date Assessment Result Facility 03-06-2025 Patient Health Quest ionnaire 2 item (PHQ-2) [Reported] [facility] Clinical Notes 09-07-2021 to 03-22-2025 Telephone Encounter - Jeanette Tijerina MD - 03/22/2025 8:52 PM EDTTelephone Encounter - Jeanette Tijerina MD - 03/22/2025 8:52 PM EDTJeanette Tijerina MD - 03/06/2025 1:51 PM EDT Note Date & Type Note Facility 03-22-2025 Telephone encount er Note Refills sent. [facility] 03-22-2025 Miscellaneous Notes Formattin g of this note might be different from the original. Refills sent. documented in this encounter [facility] 03-06-2025 History of Presen t illness Narrative Associated Problem(s): Ulcerative colitis Continue asacol. Associated Problem(s): Essential (primary) hypertension (CMS/HCC) Continue ziac. Images from the original note were not included. Jovita Stiles is a 84 y.o. female presents with chief complaint of Medicare Annual Wellness Visit Subsequent HPI: HPI Over the past 2 weeks, how often have you been bothered by any of the following problems? Little interest or pleasure in doing things: Not at all Feeling down, depressed, or hopeless: Not at all Patient Health Questionnaire-2 Score: 0 Andersen Fall Risk History of Falling, Immediate or Within 3 Months: Yes Ambulatory Aid: Walks without aid/bedrest/nurse assist Gait/Transferring: Normal/bedrest/immobile Mental Status: Oriented to own ability Health Risk Assessment Form Do you need help eating, bathing, using the toilet, dressing, or getting around your home?: No Can you prepare your own meals?: Yes Can you do your own housework without help?: Yes Can you shop for groceries or clothes without help?: Yes Do you exercise for about 20 minutes 3 or more days a week?: No How confident are you that you can control and manage most of your health problems?: Very confident Can you mange your money, credit cards and accounts, pay bills and taxes?: Yes Cognitive Screening Three Word Registration: Banana, Giddings, Chair Clock Drawing: Normal Clock - 2 Three Word Recall: All 3 words correct - 3 Total Score (0-5 Points): 5 Pain Assessment Pain Score: 0 - No pain History of Present Illness The patient presents for a Medicare wellness visit. The chief complaint is the Medicare wellness visit. She is accompanied by her spouse. She has not received the shingles vaccine. No dental issues are reported, but a crown was placed recently. Bone loss in her teeth was noted by her dentist, and a dental appointment is scheduled for next month. An eye examination with Dr. Schaefer is scheduled for next week. [facility]. 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 SOCIAL HISTORY She does not smoke. SUBJECTIVE: MEDICATIONS: Current Outpatient Medications Medication Instructions acetaminophen (TYLENOL) 500 mg, Every 6 hours PRN albuterol HFA 90 mcg/act inhaler 2 puffs, Inhalation, Every 4 hours PRN balsalazide (Colazal) 750 MG capsule 2 capsules, Every 12 hours bisoprolol-hydroCHLOROthiazide (Ziac) 10-6.25 MG tablet TAKE 1 TABLET BY MOUTH EVERY DAY AT THE SAME TIME dorzolamide-timolol (Cosopt) 2-0.5 % ophthalmic solution INSTILL 1 DROP INTO BOTH EYES TWICE A DAY DIRECTED latanoprost (Xalatan) 0.005 % ophthalmic solution 1 drop, Every 24 hours mesalamine (Asacol) 800 MG EC tablet PLEASE SEE ATTACHED FOR DETAILED DIRECTIONS Multiple Vitamins-Minerals (MULTIVITAMIN ADULT, MINERALS, PO) I have reviewed and reconciled the history and medication list with the patient today. REVIEW OF SYMPTOMS: Review of Systems OBJECTIVE: Visit Vitals BP 128/72 Pulse 51 Ht 5' 3 Wt 138 lb 6.4 oz SpO2 98% BMI 24.52 kg/m Smoking Status Never BSA 1.67 m Physical Exam Vitals and nursing note reviewed. Constitutional: Appearance: Normal appearance. HENT: Head: Normocephalic and atraumatic. Right Ear: Tympanic membrane normal. Left Ear: Tympanic membrane normal. Nose: Nose normal. Mouth/Throat: Mouth: Mucous membranes are moist. Pharynx: No oropharyngeal exudate. Eyes: Extraocular Movements: Extraocular movements intact. Conjunctiva/sclera: Conjunctivae normal. Pupils: Pupils are equal, round, and reactive to light. Cardiovascular: Rate and Rhythm: Normal rate and regular rhythm. Heart sounds: Normal heart sounds. Pulmonary: Effort: Pulmonary effort is normal. Breath sounds: Normal breath sounds. Abdominal: General: Abdomen is flat. Bowel sounds are normal. Palpations: Abdomen is soft. Musculoskeletal: General: Normal range of motion. Cervical back: Normal range of motion and neck supple. Skin: General: Skin is warm and dry. Capillary Refill: Capillary refill takes less than 2 seconds. Neurological: Mental Status: She is alert and oriented to person, place, and time. Psychiatric: Mood and Affect: Mood normal. ASSESSMENT AND PLAN: Assessment & Plan 1. Health maintenance. - Last mammogram conducted in 12/2024. - Bone density test in 2022 revealed osteoporosis. - Advised to receive annual influenza vaccinations; colon cancer screening not necessary unless bowel movement irregularities occur. - Metabolic panel, including kidney function, liver function, and blood count, will be ordered. 2. Osteoporosis. - Osteoporosis confirmed by bone density test in 2022. - Discussed risks of fractures, particularly hip and back fractures. - Suggested medications such as Fosamax and Actonel to strengthen bones. - Will consult with dentist regarding potential jaw bone issues before starting medication. 3. Medication management. - Continues to take Asacol (mesalamine) for bowel condition. - Upcoming appointment with GI specialist to review current treatment plan. 4. Vaccinations. - Discussed shingles vaccine availability at the pharmacy. - Informed about RSV vaccine for individuals over 65, available at the pharmacy. Assessment/Plan Problem List Items Addressed This Visit Essential (primary) hypertension (CMS/HCC) Continue ziac. Relevant Orders Comprehensive metabolic panel CBC Ulcerative colitis Continue asacol. Other Visit Diagnoses Wellness examination - Primary Localized osteoporosis without current pathological fracture (CMS/HCC) documented in this encounter [facility] 11-05-2024 History of Presen t illness Narrative Images from the original note were not included. Jovita Stiles is a 83 y.o. female presents with chief complaint of follow up from stroke screen [facility] on 09/16/24 HPI: HPI History of Present Illness The patient presents for evaluation of lightheadedness. She reports experiencing occasional episodes of lightheadedness, the frequency of which is uncertain. She attributes these episodes to either hunger or dizziness, noting that they tend to resolve upon eating. She does not report any correlation between these episodes and specific activities, movements, or positional changes. She had a scan done at her latter day and it showed mild carotid artery disease. The rest of the testing was normal. SUBJECTIVE: MEDICATIONS: Current Outpatient Medications Medication Instructions acetaminophen (TYLENOL) 500 mg, Every 6 hours PRN balsalazide (Colazal) 750 MG capsule 2 capsules, Every 12 hours bisoprolol-hydroCHLOROthiazide (Ziac) 10-6.25 MG tablet TAKE 1 TABLET BY MOUTH EVERY DAY AT THE SAME TIME dorzolamide-timolol (Cosopt) 2-0.5 % ophthalmic solution INSTILL 1 DROP INTO BOTH EYES TWICE A DAY DIRECTED latanoprost (Xalatan) 0.005 % ophthalmic solution 1 drop, Every 24 hours mesalamine (Asacol) 800 MG EC tablet PLEASE SEE ATTACHED FOR DETAILED DIRECTIONS Multiple Vitamins-Minerals (MULTIVITAMIN ADULT, MINERALS, PO) I have reviewed and reconciled the history and medication list with the patient today. REVIEW OF SYMPTOMS: Review of Systems OBJECTIVE: Visit Vitals BP 128/80 Pulse 55 Ht 5' 3 Wt 141 lb 9.6 oz SpO2 98% BMI 25.08 kg/m Smoking Status Never BSA 1.69 m Physical Exam ASSESSMENT AND PLAN: Assessment & Plan 1. Lightheadedness. Her blood pressure was elevated during a previous visit but is currently within the normal range. She reports occasional lightheadedness, which she attributes to hunger or dizziness. Eating seems to alleviate the symptoms. There is no correlation with specific activities or changes in position. Assessment/Plan Problem List Items Addressed This Visit None Visit Diagnoses Mild atherosclerosis of carotid artery, unspecified laterality - Primary Noted on a lifeline screening type of exam. It is mild and no further work up is recommended at this time. documented in this encounter [facility] 09-23-2024 Telephone encount er Note Refills sent. [facility] 09-23-2024 Miscellaneous Notes Formattin g of this note might be different from the original. Refills sent. documented in this encounter [facility] 09-05-2024 History of Presen t illness [...] and has an upcoming appointment with her outreach rep next week. A new medication was prescribed [...] has an appointment next week with her technology specialist. A new medication will be added [...] Orders Flu vaccine, high dose seasonal, PF (VKT714) (Fluzone High Dose) (Completed) Pneumococcal conjugate vaccine 20-valent IM (Completed) documented in this encounter [facility] 09-21-2023 Evaluation note Encounter Date Diagnosis Assessment Notes Sep, Ulcerative colitis (ICD-10 - K51.90) PATIENT TO START USE OF DAILY METAMUCIL GUMMIES. PATIENT IS DUE FOR REPEAT COLONOSCOPY FOR HX OF COLON POLYPS. [employer] Other 11-29-2022 Evaluation note* Encounter Date Diagnosis Assessment Notes Treatment Notes Treatment Clinical Notes Sep, Diarrhea (ICD-10 - R19.7) Sep, Ulcerative colitis (ICD-10 - K51.90) START LOW FODMAP DIET-EDUCATION HANDOUT GIVEN TO PT CONTINUE BALSALAZIDE 1 CAPSULE THREE TIMES A DAY RTO 1 YR Sep, Serrated adenoma of colon (ICD-10 - D12.6) REPEAT COLONOSCOPY 1 YR [employer] Other 08-30-2022 Evaluation note* Encounter Date Diagnosis Assessment Notes Treatment Notes Treatment Clinical Notes Jun, Abdominal cramping (ICD-10 - R10.9) Jun, Diarrhea (ICD-10 - R19.7) PATIENT TO CONTINUE ON THE MEDICATION. Jun, Rectal bleeding (ICD-10 - K62.5) Jun, Serrated adenoma of colon (ICD-10 - D12.6) PATIENT IS ADVISED WE WILL RECHECK THE COLON IN 3 YEARS Jun, Hemorrhoids (ICD-10 - K64.9) [employer] Other 07-05-2022 Evaluation note* Encounter Date Diagnosis Assessment Notes Treatment Notes Treatment Clinical Notes May, Ulcerative colitis (ICD-10 - K51.90) [employer] Other 06-22-2022 Evaluation note* Encounter Date Diagnosis [...] no improvement in 2 to 3 days. [employer] Other 06-09-2022 Evaluation note* Encounter Date Diagnosis Assessment Notes Treatment Notes Treatment Clinical Notes Apr, Blood in stool (ICD-10 - K92.1) THIS IS SOMEDAYS NOT EVERYDAY Apr, Ulcerative colitis (ICD-10 - K51.90) PATIENT WAS ON ASACOL PREVIOUSLY. PATIENT DOES HAVE CRAMPING, PAIN AND LOOSE STOOLS. PATIENT TO PROCEED WITH COLONOSCOPY [employer] Other 12-14-2021 Evaluation note* Encounter Date Diagnosis [...] Other specified postprocedural states (ICD-10 - Z98.890) [employer] Other 10-19-2021 Evaluation note* Encounter Date Diagnosis Assessment Notes Treatment Notes Treatment Clinical Notes Aug, Other intraarticular fracture of lower end of left radius, subsequent encounter for closed fracture with routine healing (ICD-10 - S52.572D) Radiograph results reviewed with patient. Patient is progressing well from surgery. Continue gentle motion/strengthen ing. Call with questions/concern s. Aug, Other specified postprocedural states (ICD-10 - Z98.890) [employer] Other Evaluation note* Diagnosis Essential (primary) hypertension (CMS/HCC)- Primary Unspecified essential hypertension Encounter for immunization [facility] Diagnosis Essential (primary) hypertension (CMS/HCC) Unspecified essential hypertension [facility] Diagnosis Onset Date Resolution Status Ulcerative colitis acute [facility] Work Phone: Evaluation note* Diagnosis Mild atherosclerosis of carotid artery, unspecified laterality- Primary [facility] Diagnosis Onset Date Resolution Status Admit Date Ulcerative colitis acute Februa 2024 1:30pm [facility] Work Phone: Evaluation note* Diagnosis Wellness examination- Primary Essential (primary) hypertension (CMS/HCC) Unspecified essential hypertension Ulcerative colitis with complication, unspecified location (CMS/HCC) Localized osteoporosis without current pathological fracture (CMS/HCC) [facility] Diagnosis Wellness examination- Primary Essential (primary) hypertension (CMS/HCC) Unspecified essential hypertension Ulcerative colitis with complication, unspecified location (CMS/HCC) Localized osteoporosis without current pathological fracture (CMS/HCC) Essential (primary) hypertension (CMS/HCC) Unspecified essential hypertension [facility] - Reported* Type Description Date Medical History high blood pressure Surgical History thyroid nodule removed-right si de Surgical History ORIF Left distal radius 2020 [employer] Other Summary Purpose Family History Relationship Condition Age at Onset Recorded Date/T tiff mother Cerebrovascular accident (CVA) Unknown father Hypertension Unknown brother Diabetes mellitus Unknown Hypertension Unknown father Unknown mother Unknown Advance Directives Advance Directive Response Recorded Date/ Time Advance Directives No July 07, 2021 3:37pm Chief Complaint and Reason for Visit Chief Complaint 1 YEAR FOLLOW UP/ULC ERATIVE COLITIS Reason for Visit Ulcerative colitis Chief Complaint Admit Date 3 month f/u-uc December 26, 2024 1 :30pm Reason for Visit Admit Date Ulcerative colitis December 26, 2024 1 :30pm Additional Source Comments INFORMATION SOURCE (unrecogn ized section and content) DATE CREATED AUTHOR 04/22/2022 [facility] dical Specialist DATE CREATED AUTHOR AUTHOR'S ORGANIZ ATION 05/18/2022 [facility] DATE CREATED AUTHOR AUTHOR'S ORGANIZ ATION 05/31/2022 [facility] DATE CREATED AUTHOR AUTHOR'S ORGANIZ ATION 03/08/2025 [facility] dical Specialists EPIC REASON FOR VISIT (unrecogniz ed section and content) Reason Comments Med Refill Reason Comments Medicare Annual Wellness Visit Subsequen t Care Teams (unrecognized sec tion and content) [employer] Relationship Specialty Start Date End Date Jeanette Tijerina MD [address], [place] [phone] PCP - Rosy HACKETT 10/20/22 Jeanette Tijerina MD [address] [place], [place] [phone] PCP - General Family Medicine 03/28/23 [employer] Relationship Specialty Start Date End Date Jeanette Tijerina MD [address] [place] [address] PCP - Rosy HACKETT 10/20/22 Jeanette Tijerina MD [address] [facility] [place] [address] PCP - General Family Medicine 03/28/23 [employer] Relationship Specialty Start Date End Date Jeanette Tijerina MD [address] [facility] [place] [address] PCP - Rosy HACKETT 10/20/22 Jeanette Tijerina MD [address] [facility] [place] [address] PCP - General Family Medicine 03/28/23 Team Status: Active Member Role Status Dates Jeanette Tijerina MD Primary Care Provide r Active Team Status: Inactive Member Role Status Dates Jeanette Tijerina MD Primary Care Provider Active Start: September End: September 24, 2024 Tabitha Kowalski DO Attending Provider Active St art: September 24, 2024 End: September 24, 2024 [employer] Relationship Specialty Start Date End Date Jeanette Tijerina MD [address] [facility] [place] [address] PCP - Rosy HACKETT 10/20/22 Jeanette Tijerina MD [address] [facility] [place] [address] PCP - General Family Medicine 03/28/23 Berkley Hernandez LPN Licensed Practical Nurse Family Medicine 10/10/24 [employer] Relationship Specialty Start Date End Date Jeanette Tijerina MD [address] [place] [address] PCP - Rosy HACKETT 10/20/22 Jeanette Tijerina MD [address] [place] [address] PCP - General Family Medicine 03/28/23 Berkley Hernandez LPN Licensed Practical Nurse Family Medicine 10/10/24 Team Status: Inactive Member Role Status Dates Jeanette Tijerina MD Primary Care Provider Active Start: December End: December 26, 2024 Tabitha Kowalski DO Attending Provider Active St art: December 26, 2024 End: December 26, 2024 [employer] Relationship Specialty Start Date End Date Jeanette Tijerina MD [address] [place] [address] PCP - Rosy HACKETT 10/20/22 Jeanette Tijerina MD [address] [place] [address] PCP - General Family Medicine 03/28/23 Berkley Hernandez LPN Licensed Practical Nurse Family Medicine 10/10/24 [employer] Relationship Specialty Start Date End Date Jeanette Tijerina MD [address] [place] [address] PCP - Rosy HACKETT 10/20/22 Jeanette Tijerina MD [address] [place] [address] PCP - General Family Medicine 03/28/23 Berkley Hernandez LPN Licensed Practical Nurse Family Medicine 10/10/24 [employer] Relationship Specialty Start Date End Date Jeanette Tijerina MD [address] [facility] [place] [address] PCP - Rosy HACKETT 10/20/22 Jeanette Tijerina MD [address] [place], [place] [id number] PCP - General Family Medicine 03/28/23 Berkley Hernandez LPN Licensed Practical Nurse Family Medicine 10/10/24 Goals (unrecognized section and content) Goals may [...] BE BASED ON THE PRIMARY CLINICAL RECORDS. [facility] [employer] provides no warranty or guarantee of the accuracy or completeness of information in this document.
--- NOTE | 2025-03-29 18:09 | ECG_ITS ---
[facility] Test Date: 2025-03-29 Pat Name: NANDO EPSTEIN Department: Room: - Gender: Female Ad Copy Writer: : 1940 Requested By: [id number] Order Number: [id number] Reading MD: MATTHIAS HERNADEZ M.D. Measurements Intervals Drift Rate: 60 P: 4 ID: [id number] QRS: 13 QRSD: 86 T: 22 QT: 420 QTc: 420 Interpretive Statements 1100 Sinus rhythm 5222 Moderate voltage criteria for LVH, may be normal variant 9130 borderline ECG No previous ECG available for comparison Electronically Signed On 03-30-2025 12:45:16 EDT by MATTHIAS HERNADEZ M.D.
[2025-03-29 18:26] LABS: Basophils Percent Auto 0.2 % (0.2-2.0); Eosinophils Absolute Auto 0.1 10^3/uL (0.0-0.7); Eosinophils Percent Auto 0.4 % (0.9-7.0); Hematocrit 38.1 % (36.0-48.0); Hemoglobin 12.9 g/dL (12.0-16.0); Immature Granulocytes Abs Auto 0.06 10^3/uL (0.00-0.03); Immature Granulocytes Pct Auto 0.4 % (0.0-0.5); Lymphocytes Absolute Auto 3.3 10^3/uL (1.2-3.8); Lymphocytes Percent Auto 24.3 % (20.5-60.0); Mean Corpuscular HGB Conc 33.9 g/dL (29.9-35.2); Mean Corpuscular Hemoglobin 30.4 pg (26.7-34.0); Mean Corpuscular Volume 89.9 fL (81.0-99.0); Mean Platelet Volume 10.8 fL (9.5-13.5); Monocytes Absolute Auto 0.8 10^3/uL (0.3-0.8); Monocytes Percent Auto 5.7 % (1.7-12.0); Neutrophils Absolute Auto 9.3 10^3/uL (1.4-6.5); Platelet Count 249 10^3/uL (150-450); Red Blood Count 4.24 10^6/uL (4.20-5.40); Red Cell Distribution Width 12.5 % (11.0-15.0); White Blood Count 13.4 10^3/uL (4.0-11.0)
[2025-03-29] MEDS: MORPHINE SULFATE 2 MG/ML SYRINGE IV ×2 (18:26→19:41)
[2025-03-29] MEDS: ONDANSETRON PF 4 MG/2 ML VIAL IV (18:26)
[2025-03-29 18:44] LABS: INR 0.98; Partial Thromboplastin Time 25.3 sec (22.3-36.2); Prothrombin Time 10.4 sec (9.0-11.6)
[2025-03-29 18:48] LABS: Alanine Aminotransferase 27 U/L (14-59); Albumin Globulin Ratio 1.1; Albumin Level 3.8 g/dL (3.4-5.0); Alkaline Phosphatase 96 U/L (46-116); Anion Gap 11.3; Aspartate Amino Transferase 26 U/L (15-37); BUN Creatinine Ratio 25.4; Bilirubin Total 0.5 mg/dL (0.2-1.0); Carbon Dioxide 28.1 mmol/L (21.0-32.0); Chloride 101 mmol/L (98-107); Estimated GFR (African America >60 (>=60 mL/min/1.73m^2); Estimated GFR (Non-African Ame >60 (>=60 mL/min/1.73m^2); Globulin 3.4 g/dL; Glucose 118 mg/dL (74-106); Potassium 3.4 mmol/L (3.5-5.1); Sodium 137 mmol/L (136-145); Total Protein 7.2 g/dL (6.4-8.2)
--- NOTE | 2025-03-29 18:48 | ED.GENADUL1 ---
HPI HPI - General Adult General Chief complaint: Fall Stated complaint: Fall Time Seen by Provider: 03/29/25 18:02 Source: patient and family Mode of arrival: Wheelchair Limitations: no limitations History of Present Illness HPI narrative: Patient [id number] female presents to the emergency room with a chief complaint of a fall. She arrived by private car. Walking up her sidewalk and was looking at her sanz. It is presumed by her that she tripped over the sanz and landing face down. Patient does not recall the fall states she remembers walking up her sidewalk. She has deformity noted to the left forearm, left cheek and an abrasion to the left knee. She denies loss conscious but does not remember the incident. She states they went to [employer] and the injury occurred around 5 PM she came to the emergency room shortly after the injury occurred. Denies any headache. Nausea or vomiting. She is alert oriented x 3. She also has an upper lip laceration noted. Small amount of dried blood to the face and around the dentition. She has no apparent loose teeth initially. Patient's past medical history includes hypertension ulcerative colitis. She states she occasionally takes aspirin has not had any today. Her is at bedside and said he walked outside and found her laying on the ground. He said he walked inside to grab his wallet and came out and found her laying down. He was able to assist her getting up and brought her here to the emergency room. Head or neck pain has no midline tenderness to the cervical spine. Related Data Home Medications ?Medication ?Instructions ?Recorded ?Confirmed balsalazide 750 mg capsule 750 mg PO DAILY 04/04/24 03/29/25 bisoprolol 10 1 tab PO DAILY 04/04/24 03/29/25 mg-hydrochlorothiazide 6.25 mg tablet latanoprost 0.005 % eye drops 1 drp ophthalmic (eye) BEDTIME 04/04/24 03/29/25 dorzolamide 22.3 mg-timolol 6.8 1 drp ophthalmic (eye) Q12H 03/29/25 03/29/25 mg/mL eye drops mesalamine 800 mg tablet,delayed 800 mg PO TID 03/29/25 03/29/25 release Allergies Allergy/AdvReac Type Severity Reaction Status Date / Time No Known Drug Allergies Allergy Verified 03/29/25 17:47 Opioid HPI Opioid Management Most Recent Opioid Data: Last Pain Scale 8 03/29/25, 22:28 Last ED Pain Assessment 03/29/25, 22:28 Last MAR Pain Assessment 03/29/25, 18:26 Review of Systems ROS Status of ROS 10 or more systems reviewed and unremarkable except as noted in history and below PFSH PFSH Social History Little interest or pleasure in doing things: not at all Feeling down, depressed, or hopeless: not at all Exam Narrative Exam Narrative: All Systems are negative except as noted/marked.All systems reviewed and otherwise negative Nurses note and vital signs reviewed and patient is not hypoxic. General: The patient appears well and in no apparent distress. Patient is resting comfortably on cart. Skin: Warm, dry, no pallor noted. There is no rash noted. Head: Normocephalic, abrasion soft tissue swelling noted to the cheek Eye: Normal conjunctiva, no drainage, EOMI. PERRL Ears, Nose, Mouth, and Throat: Upper lip lacerations approximately 0.5 cm, superficial in nature, no loose dentition noted oral mucosa is moist. Nares patent. Mouth without vesicles. Ear canals patent. Tm's without Erythema Cardiovascular: Regular Rate and Rhythm Respiratory: Patient is in no distress, no accessory muscle use, lungs are clear to auscultation, no wheezing, rales or rhonchi Back: non-tender, no CVA tenderness bilaterally to percussion. GI: Normal bowel sounds, no tenderness to palpation, no masses appreciated. No rebound, guarding, or rigidity noted. Musculoskeletal: Forearm soft tissue swelling with hematoma, neurovascularly intact, no humerus pain no wrist pain only forearm pain. Left knee abrasion ,the patient has no evidence of calf tenderness, no pitting edema, symmetrical pulses noted bilaterally Neurological: A&O x4, normal speech Psychiatric: Cooperative Constitutional Vital Signs, click to edit/add: Last Vital Signs Temp 98.4 F 03/29/25 22:27 Pulse 62 03/29/25 22:27 Resp 20 03/29/25 22:27 BP 146/76 H 03/29/25 22:27 Pulse Ox 96 03/29/25 23:40 O2 Del Method Room Air 03/29/25 22:27 Course Vital Signs Vital signs: Vital Signs Temperature 98.1 F 03/29/25 17:47 Pulse Rate 58 L 03/29/25 17:47 Respiratory Rate 18 03/29/25 17:47 Blood Pressure 201/87 H 03/29/25 17:47 Pulse Oximetry 98 03/29/25 17:47 Oxygen Delivery Method Room Air 03/29/25 17:47 Temperature 98.4 F 03/29/25 22:27 Pulse Rate 62 03/29/25 22:27 Respiratory Rate 20 03/29/25 22:27 Blood Pressure 146/76 H 03/29/25 22:27 Pulse Oximetry 96 03/29/25 23:40 Oxygen Delivery Method Room Air 03/29/25 22:27 Medical Decision Making MDM Narrative Medical decision making narrative: Patient [id number] female presents to the emergency room with a chief complaint of a fall. She arrived by private car. Walking up her sidewalk and was looking at her sanz. It is presumed by her that she tripped over the sanz and landing face down. Patient does not recall the fall states she remembers walking up her sidewalk. She has deformity noted to the left forearm, left cheek and an abrasion to the left knee. She denies loss conscious but does not remember the incident. She states they went to [employer] and the injury occurred around 5 PM she came to the emergency room shortly after the injury occurred. Denies any headache. Nausea or vomiting. She is alert oriented x 3. She also has an upper lip laceration noted. Small amount of dried blood to the face and around the dentition. She has no apparent loose teeth initially. Patient's past medical history includes hypertension ulcerative colitis. She states she occasionally takes aspirin has not had any today. Her is at bedside and said he walked outside and found her laying on the ground. He said he walked inside to grab his wallet and came out and found her laying down. He was able to assist her getting up and brought her here to the emergency room. Head or neck pain has no midline tenderness to the cervical spine. 2012 since transfer line was contacted. I spoke to Dr. Lul Montes, who is a plastic surgeon. [facility] transfer center wanted me to speak to them to be sure he can assist if needed by you due to her facial fracture. He did say he could assist. Patient's major injury from the fall is her left forearm fracture with does have a hematoma at this time. She has a midshaft ulnar radial fracture with about a 45 degree angle. She has a previous fracture to the radius distally that has a plate and screws. I spoke to Dr. Christina Archuleta's ER physician who agrees for patient transfer. CT scan of the neck is currently pending. Patient was given 4 mg of morphine IV, Zofran and 0.5 mg of Dilaudid. Was placed by myself. Extremity neurovascular intact before and after application of this. Nursing staff did place a forearm, arm in sling. Patient is stable to be transferred. We are trying to assist with transfer at this time. Patient and are aware of plan of care. Patient last ate around 1230 this afternoon. She is otherwise healthy. Differential Diagnosis Differential Diagnosis: head injury, facial fracture, abrasion, forearm fracture , lip laceration Medical Records Medical records reviewed: Yes I reviewed the patient's medical records Lab Data Lab results reviewed: Yes I reviewed the patient's lab results Labs: Lab Results 03/29/25 Range/Units 18:15 WBC 13.4 H (4.0-11.0) 10^3/uL RBC 4.24 (4.20-5.40) 10^6/uL Hgb 12.9 (12.0-16.0) g/dL Hct 38.1 (36.0-48.0) % MCV 89.9 (81.0-99.0) fL MCH 30.4 (26.7-34.0) pg MCHC 33.9 (29.9-35.2) g/dL RDW 12.5 (11.0-15.0) % Plt Count 249 (150-450) 10^3/uL MPV 10.8 (9.5-13.5) fL Neut % (Auto) 69.0 (43.0-75.0) % Lymph % (Auto) 24.3 (20.5-60.0) % [place] % (Auto) 5.7 (1.7-12.0) % Eos % (Auto) 0.4 L (0.9-7.0) % Baso % (Auto) 0.2 (0.2-2.0) % Neut # (Auto) 9.3 H (1.4-6.5) 10^3/uL Lymph # (Auto) 3.3 (1.2-3.8) 10^3/uL [place] # (Auto) 0.8 (0.3-0.8) 10^3/uL Eos # (Auto) 0.1 (0.0-0.7) 10^3/uL Baso # (Auto) 0.0 (0.0-0.1) 10^3/uL Abs Immat Gran (auto) 0.06 H (0.00-0.03) 10^3/uL Imm/Tot Granulo (auto) 0.4 (0.0-0.5) % PT 10.4 (9.0-11.6) sec INR 0.98 APTT 25.3 (22.3-36.2) sec Sodium 137 (136-145) mmol/L Potassium 3.4 L (3.5-5.1) mmol/L Chloride 101 (98-107) mmol/L Carbon Dioxide 28.1 (21.0-32.0) mmol/L Anion Gap 11.3 BUN 16.0 (7.0-18.0) mg/dL Creatinine 0.63 (0.55-1.02) mg/dL Est GFR ( Amer) >60 (>=60 mL/min/1.73m^2) Est GFR (Non-Af Amer) >60 (>=60 mL/min/1.73m^2) BUN/Creatinine Ratio 25.4 Glucose 118 H (74-106) mg/dL Calcium 9.0 (8.5-10.1) mg/dL Total Bilirubin 0.5 (0.2-1.0) mg/dL AST 26 (15-37) U/L ALT 27 (14-59) U/L Alkaline Phosphatase 96 (46-116) U/L Troponin I High Sens 43.2 (4.0-51.3) pg/mL Total Protein 7.2 (6.4-8.2) g/dL Albumin 3.8 (3.4-5.0) g/dL Globulin 3.4 g/dL Albumin/Globulin Ratio 1.[address] scan - head: Attestation: I have reviewed the pertinent imaging results. My impression: displaced forearm fracture, sinus fracture ECG Data Attestation: ?I have reviewed the pertinent ECG results. Interpretation: 1831 occasional normal sinus rhythm with a rate of 60 bpm parable 160 ms QRS duration [address] elevation or depression no STEMI Discharge Plan Discharge Chief Complaint: Fall Clinical Impression: Fracture of radial shaft, with ulna, left, closed, Fall, Facial fracture, Laceration of lip Patient Disposition: [facility] Time of Disposition Decision: 20:20 Discharge location: [place], [place] Condition: Good Mode of Transportation: EMS Discharge Date/Time: 03/30/25 02:00
[2025-03-29 18:52] LABS: Troponin I High Sensitivity 43.2 pg/mL (4.0-51.3)
[2025-03-29] MEDS: CEFAZOLIN SODIUM/DEXTROSE,ISO 1 GM/50 ML PREMIX IV (20:24)
[2025-03-29] MEDS: HYDROMORPHONE HCL 0.5 MG/0.5 ML SYRINGE IV (21:02)
== END 2025-03-30 02:00 | disposition short-term general hospital (02) ==
PROVIDERS: Physician Assistant; Emergency Provider Emergency Medicine; PCP Family Medicine
DX: S52.302A Unspecified fracture of shaft of left radius, initial encounter for closed fracture (principal); S52.202A Unspecified fracture of shaft of left ulna, initial encounter for closed fracture; S02.842A Fracture of lateral orbital wall, left side, initial encounter for closed fracture; S80.212A Abrasion, left knee, initial encounter; W18.39XA Other fall on same level, initial encounter; S01.511A Laceration without foreign body of lip, initial encounter; I10 Essential (primary) hypertension; K51.90 Ulcerative colitis, unspecified, without complications
CPT/HCPCS: 36415; 70450; 70486; 72125; 73060; 73090; 73110; 80053; 84484; 85025; 85610; 85730; 93005; 96365; 96375; 96376; 99285; J0690; J1171; J2270; J2405